=== PATIENT | male | born 1980 ===

== ENCOUNTER → 2018-10-08 10:13 | Outpatient (CLI) | payer OTHER, MEDICAID, SELFPAY ==
[2018-10-08 10:55] LABS: Blood Urea Nitrogen 16 mg/dL (9-20); Carbon Dioxide 30 mmol/L (22-32); Chloride 99 mmol/L (98-107); Estimated Glomerular Filt Rate > 60.0 mL/min (>60); Glucose 119 mg/dL (70-100); HEMOLYSIS < 15 (0-50); Magnesium 1.9 mg/dL (1.6-2.3); Potassium 4.5 mmol/L (3.4-5.1); Sodium 140 mmol/L (137-145)
[2018-10-08 11:34] LABS: HIV 1 and 2 Antibody NEGATIVE (NEGATIVE)
[2018-10-08 12:37] LABS: Urine N gonorrhoeae NOT DETECTED
[2018-10-08 12:43] LABS: Urine Chlamydia NOT DETECTED
[2018-10-09 13:19] LABS: RPR Screen Nonreactive (Nonreactive)
[2018-10-10 09:30] LABS: Hepatitis A Antibody IgM NONREACTIVE (NONREACTIVE); Hepatitis Acute Panel Interp 0.04 (NONREACTIVE); Hepatitis B Core Antibody IgM NONREACTIVE (NONREACTIVE); Hepatitis B Surface Antigen NONREACTIVE (NONREACTIVE); Hepatitis C Antibody NONREACTIVE
== END ==
PROVIDERS: PCP Family Medicine; Visit Provider Family Medicine
DX: R25.3 Fasciculation (principal); Z11.3 Encounter for screening for infections with a predominantly sexual mode of transmission
CPT/HCPCS: 36415; 80048; 80074; 83735; 86592; 86703; 87491; 87591

== ENCOUNTER 2018-11-19 12:15 | Outpatient (RCR) | payer OTHER, MEDICAID, SELFPAY ==
--- NOTE | 2018-09-29 17:35 | PT.OIE ---
Current Diagnoses Dorsalgia, unspecified (09/29/18) Past Medical History (Last Updated 09/20/18 @ 20:58 by Nikki Quesada) Eczema (Chronic ~1982) Knee pain, left (Chronic) Vision disorder (Chronic) Chicken pox (Resolved) Provider Visit Care Team Role Provider Type Katarina Bobo MD Attending Provider Physician Primary Care Provider Specialty: [facility] Address: [address] [place] [address], [facility] Email: [email or web address] Physical Therapy Initial Evaluation PT-OP-A Visit Information Start: 09/29/18 08:06 Freq: Status: Active Protocol: Document 09/29/18 08:07 EA (Rec: 09/29/18 08:15 EA [id number]) Out-Patient Physical Therapy Visit Information Visit Information Visit Type Treatment Note Visit Start Time 07:35 Visit Stop Time 08:05 Total Visit Minutes 30 Visit Number 1 Evaluation Information Evaluation Date 09/29/18 PT-OP-B Current Condition Start: 09/29/18 08:06 Freq: Status: Active Protocol: Document 09/29/18 08:07 EA (Rec: 09/29/18 08:15 EA [id number]) Current Condition History of Current Condition Onset Date 09/29/18 Current Complaints Localized low back pain L > R History of Current Condition Present complaint of low back pain has been chronic for almost 5 years ago with no reports high severity until two months with no known reasons; 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 Patient reports have had previous history when was 20 y /o with same condition and was completely resolve with chiropractor. Pt reports prescribed medication helps a bit but not completely well. No X-ray or other diagnostic imaging performed in the past. Prior Treatments and Tests None Identified Future Testing and Treatments Planned None identified at the moment. Treatment Goals Patient/Caregiver Goals Patient to get rid of the pain so he perform his tasks at work and at home without limitation. Prior Functional Status Baseline Function- ADL's Independent Baseline Function- Mobility Independent Baseline Function- Gait Indep Baseline Function- Work/School No functional limitation at all since last year Current Functional Impairments (Reported) Functional Limitations- ADL's Independent with minimal difficulty with all bending and floor to waist lfting activities Functional Limitations- Mobility/Gait Independent with no limitation Functional Limitations- Work/School Indep with min difficulty with bending and lifting activities PT-OP-C Subjective Start: 09/29/18 08:06 Freq: Status: Active Protocol: Document 09/29/18 08:07 EA (Rec: 09/29/18 08:15 EA [id number]) OP-PT Subjective Patient Comments Patient Comments Patient c/o bending and lifting difficulty due to localized low back pain rated 6/10 with activity and 1/10 when at rest. Patient Reported Progress Improving Patient Questionnaires Oswestry Low Back Index Oswestry Score 12 Oswestry Impairment 1 to 19% Impaired (Score 1-19) OP-PT Pain Assessment Pain Assessment Grid Paper Pain Assessment Grid Completed Yes Location Bilateral Lower Back Pain Location Details SI joint L, Paralumbars, QL Description Aching Tightness Frequency Intermittent Pain Aggravating Factors Bending Lifting Patient Stated Pain Goal 1 with activity Home Pain Medication Use Pain Medications Used Yes Pain Behaviors Pain Behaviors Wincing PT-OP-F Manual Assessment Start: 09/29/18 08:06 Freq: Status: Active Protocol: Document 09/29/18 15:46 EA (Rec: 09/29/18 15:52 EA [id number]) Manual Assessments Soft Tissue Assessment Soft Tissue Mobility Assessment Tightness to both calves, Paralumbars PT-OP-G Mobility & Gait Start: 09/29/18 08:06 Freq: Status: Active Protocol: Document 09/29/18 15:54 EA (Rec: 09/29/18 15:54 EA [id number]) OP Gait Assessment Gait Gait Assistance Required: Independent Assistive Devices Assistive Device None Gait Deviations General Gait Pattern Within Normal Limits PT-OP-J Posture/Palpation/Skin Start: 09/29/18 08:06 Freq: Status: Active Protocol: Document 09/29/18 15:46 EA (Rec: 09/29/18 15:52 EA [id number]) Posture Evaluation Position Standing Evaluation View Lateral Pelvis Posture (L) Iliac Crest Superior Comments Posture Comments LLE is longer by2 cm in long sitting but corrected in supine Palpation Assessment Location One Palpation Location Left SI joint, QL paralumbars Palpation Findings Soft Tissue Tightness Tenderness PT-OP-K Range of Motion Start: 09/29/18 08:06 Freq: Status: Active Protocol: Document 09/29/18 15:46 EA (Rec: 09/29/18 15:52 EA [id number]) Lumbar Spine Range of Motion Lumbar Spine Active Percentage Testing Position Standing Flexion 85 Extension 70 Rotation Left 85 Rotation Right 85 Lateral Flexion Left 70 Lateral Flexion Right 70 ROM Limitations Soft Tissue Tightness Pain PT-OP-L Special Tests Start: 09/29/18 08:06 Freq: Status: Active Protocol: Document 09/29/18 15:46 EA (Rec: 09/29/18 15:52 EA [id number]) Special Tests Lumbar Spine Special Tests Slump Test Results negative Stork Test Test Results Neg Straight Leg Raise Test Results negative Other- 1 Test Results Gaenlen's (+) to left SI joint PT-OP-M Strength Start: 09/29/18 08:06 Freq: Status: Active Protocol: Document 09/29/18 15:43 EA (Rec: 09/29/18 15:46 EA [id number]) Trunk Strength Trunk Manual Muscle Testing Testing Position Supine Flexion 4+ Good+ Extension 4+ Good+ Rotation Left 4+ Good+ Rotation Right 4+ Good+ Lateral Flexion Left 4+ Good+ Lateral Flexion Right 4+ Good+ Hip Strength Hip Manual Muscle Testing Right Reason Not Measured WFL Left Reason Not Measured WFL Knee Strength Knee Manual Muscle Testing Right Reason Not Measured WFL Left Reason Not Measured WFL Ankle/Foot Strength Ankle and Foot Manual Muscle Testing Right Reason Not Measured WFL Left Reason Not Measured WFL PT-OP-Q Treatments Start: 09/29/18 08:06 Freq: Status: Active Protocol: Document 09/29/18 15:43 EA (Rec: 09/29/18 15:46 EA [id number]) Self-Care/Home Management Treatment Education Patient Education Body Mechanics Pain Management Posture PT-OP-T Assessment and Plan Start: 09/29/18 08:06 Freq: Status: Active Protocol: Document 09/29/18 08:15 EA (Rec: 09/29/18 08:16 EA [id number]) Physical Therapy Assessment Rehab Potential Rehabilitation Potential Excellent Evaluation Complexity Number of Personal Factors/Comorbidities 0 Number of Body Systems Impaired 1-2 Clinical Presentation at Evaluation Evolving Impairments Impairments Activity Tolerance Functional Activities Pain Posture ROM Goals Four Impairment No HEP in place Half-Way Goal (LTG) Patient will exhibit excellent understanding to HEP and will comply to recommended frequency LTG Duration 4 wks Three Impairment Impaired Lumbar ROM Deputy District [employer] Director Goal (LTG) Patient will exhibit normal Lumbar ROM to improve functional mobility. LTG Duration 4 wks Two Impairment Impaired sitting tolerance [employer] Director Goal (LTG) Patient will sit > 30 mins with no discomfort or increase in symptoms LTG Duration 4wks One Impairment Low back pain Oswetry impairment score of 12/50 Half-Way Goal (LTG) Oswetry impairment score of 0/ 10 LTG Duration 4 wks Assessment Summary Assessment Pleasant 38 y/o male patient with a referring diagnosis of low back pain presented today with left SI joint dysfunction. Special tests reveals positive to SI joint, left pelvis upslip with left leg longer than right. Tightness to paralumbars with limitation lumbar ROM. No weakness to both LE's noted and no radiculopathy noted. Both calves were tight during palpation. Due to above mentioned deficits, patient is functionally limited. In my professional opinion, patient is good candidate for skilled PT. Patient exhibits good potential for recovery. Physical Therapy Plan Frequency and Duration Frequency of Treatment 2x/Week Duration of Treatment 8 wks Plan of Care Start Date 09/29/18 Plan of Care End Date 11/03/18 Therapeutic Interventions Therapeutic Interventions Home Exercise Program Joint Mobilizations Manual Therapy Patient/Caregiver Education Self-Care/Home Management Soft Tissue Mobilization Taping Therapeutic Activities Therapeutic Exercises Modalities Cold Pack/Ice Massage Electric Stimulation Hot Packs Next Visit Focus/Plan Next Note Type Treatment Note Next Visit Plan Provide HEP
--- NOTE | 2018-09-29 17:35 | PT.OPPOC ---
Current Diagnoses Dorsalgia, unspecified (09/29/18) Provider Visit Care Team Role Provider Type Katarina Bobo MD Attending Provider Physician Primary Care Provider Specialty: [facility] Address: [address] [place] [address], [facility] Email: [email or web address] Plan Of Care PT-OP-T Assessment and Plan Start: 09/29/18 08:06 Freq: Status: Active Protocol: Document 09/29/18 08:15 EA (Rec: 09/29/18 08:16 EA [id number]) Physical Therapy Assessment Rehab Potential Rehabilitation Potential Excellent Evaluation Complexity Number of Personal Factors/Comorbidities 0 Number of Body Systems Impaired 1-2 Clinical Presentation at Evaluation Evolving Impairments Impairments Activity Tolerance Functional Activities Pain Posture ROM Goals Four Impairment No HEP in place Fdc Goal (LTG) Patient will exhibit excellent understanding to HEP and will comply to recommended frequency LTG Duration 4 wks Three Impairment Impaired Lumbar ROM Fdc Goal (LTG) Patient will exhibit normal Lumbar ROM to improve functional mobility. LTG Duration 4 wks Two Impairment Impaired sitting tolerance Fdc Goal (LTG) Patient will sit > 30 mins with no discomfort or increase in symptoms LTG Duration 4wks One Impairment Low back pain Oswetry impairment score of 12/50 Fdc Goal (LTG) Oswetry impairment score of 0/ 10 LTG Duration 4 wks Assessment Summary Assessment Pleasant 38 y/o male patient with a referring diagnosis of low back pain presented today with left SI joint dysfunction. Special tests reveals positive to SI joint, left pelvis upslip with left leg longer than right. Tightness to paralumbars with limitation lumbar ROM. No weakness to both LE's noted and no radiculopathy noted. Both calves were tight during palpation. Due to above mentioned deficits, patient is functionally limited. In my professional opinion, patient is good candidate for skilled PT. Patient exhibits good potential for recovery. Physical Therapy Plan Frequency and Duration Frequency of Treatment 2x/Week Duration of Treatment 8 wks Plan of Care Start Date 09/29/18 Plan of Care End Date 11/03/18 Therapeutic Interventions Therapeutic Interventions Home Exercise Program Joint Mobilizations Manual Therapy Patient/Caregiver Education Self-Care/Home Management Soft Tissue Mobilization Taping Therapeutic Activities Therapeutic Exercises Modalities Cold Pack/Ice Massage Electric Stimulation Hot Packs Next Visit Focus/Plan Next Note Type Treatment Note Next Visit Plan Provide HEP Plan of Care Dates Plan of Care Start Date 09/29/18 Plan of Care End Date 11/03/18 Please Sign and Return: I have reviewed this Plan of Care and certify that the skilled therapy services above are required to meet the patient?s needs. Physician Signature Date Printed Name and Credentials Clinical Instructor Signature Printed Name and Credentials
--- NOTE | 2018-10-15 14:29 | PT.OTN ---
Current Diagnoses Dorsalgia, unspecified (10/15/18) Physical Therapy Treatment Note PT-OP-A Visit Information Start: 09/29/18 08:06 Freq: Status: Active Protocol: Document 10/15/18 12:53 EA (Rec: 10/15/18 13:01 EA [id number]) Out-Patient Physical Therapy Visit Information Visit Information Visit Type Treatment Note Visit Start Time 12:15 Visit Stop Time 13:00 Total Visit Minutes 45 Visit Number 2 PT-OP-B Current Condition Start: 09/29/18 08:06 Freq: Status: Active Protocol: Document 09/29/18 08:07 EA (Rec: 09/29/18 08:15 EA [id number]) Current Condition History of Current Condition Onset Date 09/29/18 Current Complaints Localized low back pain L > R History of Current Condition Present complaint of low back pain has been chronic for almost 5 years ago with no reports high severity until two months with no known reasons; 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 Patient reports have had previous history when was 20 y /o with same condition and was completely resolve with chiropractor. Pt reports prescribed medication helps a bit but not completely well. No X-ray or other diagnostis imaging performed in the past. Prior Treatments and Tests None Identified Future Testing and Treatments Planned None identified at the moment. Treatment Goals Patient/Caregiver Goals Patient to get rid of the pain so he perform his tasks at work and at home without limitation. Prior Functional Status Baseline Function- ADL's Independent Baseline Function- Mobility Independent Baseline Function- Gait Indep Baseline Function- Work/School No functional limitation at all since last year Current Functional Impairments (Reported) Functional Limitations- ADL's Independent with minimal difficulty with all bending and floor to waist lfting activities Functional Limitations- Mobility/Gait Independent with no limitation Functional Limitations- Work/School Indep with min difficulty with bending and lifting activities PT-OP-C Subjective Start: 09/29/18 08:06 Freq: Status: Active Protocol: Document 10/15/18 12:53 EA (Rec: 10/15/18 13:01 EA [id number]) OP-PT Subjective Patient Comments Patient Comments Pt reports low back pain is the same; states woke this morning and pain to low back with radiation to posterior thigh and gluts PT-OP-F Manual Assessment Start: 09/29/18 08:06 Freq: Status: Active Protocol: Document 09/29/18 15:46 EA (Rec: 09/29/18 15:52 EA [id number]) Manual Assessments Soft Tissue Assessment Soft Tissue Mobility Assessment Tightness to both calves, Paralumbars PT-OP-G Mobility & Gait Start: 09/29/18 08:06 Freq: Status: Active Protocol: Document 09/29/18 15:54 EA (Rec: 09/29/18 15:54 EA [id number]) OP Gait Assessment Gait Gait Assistance Required: Independent Assistive Devices Assistive Device None Gait Deviations General Gait Pattern Within Normal Limits PT-OP-J Posture/Palpation/Skin Start: 09/29/18 08:06 Freq: Status: Active Protocol: Document 09/29/18 15:46 EA (Rec: 09/29/18 15:52 EA [id number]) Posture Evaluation Position Standing Evaluation View Lateral Pelvis Posture (L) Iliac Crest Superior Comments Posture Comments LLE is longer by2 cm in long sitting but corrected in supine Palpation Assessment Location One Palpation Location Left SI joint, QL paralumbars Palpation Findings Soft Tissue Tightness Tenderness PT-OP-K Range of Motion Start: 09/29/18 08:06 Freq: Status: Active Protocol: Document 09/29/18 15:46 EA (Rec: 09/29/18 15:52 EA [id number]) Lumbar Spine Range of Motion Lumbar Spine Active Percentage Testing Position Standing Flexion 85 Extension 70 Rotation Left 85 Rotation Right 85 Lateral Flexion Left 70 Lateral Flexion Right 70 ROM Limitations Soft Tissue Tightness Pain PT-OP-L Special Tests Start: 09/29/18 08:06 Freq: Status: Active Protocol: Document 09/29/18 15:46 EA (Rec: 09/29/18 15:52 EA [id number]) Special Tests Lumbar Spine Special Tests Slump Test Results negative Stork Test Test Results Neg Straight Leg Raise Test Results negative Other- 1 Test Results Gaenlen's (+) to left SI joint PT-OP-M Strength Start: 09/29/18 08:06 Freq: Status: Active Protocol: Document 09/29/18 15:43 EA (Rec: 09/29/18 15:46 EA [id number]) Trunk Strength Trunk Manual Muscle Testing Testing Position Supine Flexion 4+ Good+ Extension 4+ Good+ Rotation Left 4+ Good+ Rotation Right 4+ Good+ Lateral Flexion Left 4+ Good+ Lateral Flexion Right 4+ Good+ Hip Strength Hip Manual Muscle Testing Right Reason Not Measured WFL Left Reason Not Measured WFL Knee Strength Knee Manual Muscle Testing Right Reason Not Measured WFL Left Reason Not Measured WFL Ankle/Foot Strength Ankle and Foot Manual Muscle Testing Right Reason Not Measured WFL Left Reason Not Measured WFL PT-OP-Q Treatments Start: 09/29/18 08:06 Freq: Status: Active Protocol: Document 10/15/18 12:53 EA (Rec: 10/15/18 13:01 EA [id number]) Cardio Equipment Recumbent Bicycle Duration (Minutes) 5 Resistance 4 Other warm up Therapeutic Exercises Supine Exercises 2 Supine Exercise Name Trunk rotation stretch Side bilateral Reps/Minutes x 30SH x 2 reps 1 Supine Exercise Name Pirformis stretch Side bilateral Reps/Minutes x 30SH x 2 Prone Exercises 1 Prone Exercise Name Quads stertch Reps/Minutes x 30 sh x2 reps Sidelying Exercises 2 Sidelying Exercise Name ITB stretch Reps/Minutes x 30SH x 2 reps 1 Sidelying Exercise Name Clamshell Reps/Minutes x 15 reps Manual Therapy Treatment Soft Tissue Mobilization 1 Body Location Left paralumbars, upper gluteals, QL Mobilization Type Rolling Sustained Pressure Intensity/Depth Moderate Body Position Prone Joint Mobilizations 1 Joint L SI jnt Direction Caudal Grade III Body Position SL PT-OP-R Modalities Start: 09/29/18 08:06 Freq: Status: Active Protocol: Document 10/15/18 12:53 EA (Rec: 10/15/18 13:01 EA [id number]) Electric Stimulation Electric Stimulation Interferential Current (IFC) Body Location Left paralumbars, QL Duration (Minutes) 15 Intensity 10 Combined With Heat/Cold Hot Pack PT-OP-T Assessment and Plan Start: 09/29/18 08:06 Freq: Status: Active Protocol: Document 10/15/18 12:53 EA (Rec: 10/15/18 13:01 EA [id number]) Physical Therapy Assessment Assessment Summary Assessment Tolerated treatment well. Symptoms less after treatment. Physical Therapy Plan Next Visit Focus/Plan Next Note Type Treatment Note Next Visit Plan Cont. with current program
--- NOTE | 2018-11-03 16:46 | PT.OTN ---
Current Diagnoses Dorsalgia, unspecified (11/03/18) Physical Therapy Treatment Note PT-OP-A Visit Information Start: 09/29/18 08:06 Freq: Status: Active Protocol: Document 11/03/18 15:00 EA (Rec: 11/03/18 15:01 EA [id number]) Out-Patient Physical Therapy Visit Information Visit Information Visit Type Treatment Note Visit Start Time 14:30 Visit Stop Time 15:15 Total Visit Minutes 45 Visit Number 3 PT-OP-B Current Condition Start: 09/29/18 08:06 Freq: Status: Active Protocol: Document 09/29/18 08:07 EA (Rec: 09/29/18 08:15 EA [id number]) Current Condition History of Current Condition Onset Date 09/29/18 Current Complaints Localized low back pain L > R History of Current Condition Present complaint of low back pain has been chronic for almost 5 years ago with no reports high severity until two months with no known reasons; 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 Patient reports have had previous history when was 20 y /o with same condition and was completely resolve with chiropractor. Pt reports prescribed medication helps a bit but not completely well. No X-ray or other diagnostis imaging performed in the past. Prior Treatments and Tests None Identified Future Testing and Treatments Planned None identified at the moment. Treatment Goals Patient/Caregiver Goals Patient to get rid of the pain so he perform his tasks at work and at home without limitation. Prior Functional Status Baseline Function- ADL's Independent Baseline Function- Mobility Independent Baseline Function- Gait Indep Baseline Function- Work/School No functional limitation at all since last year Current Functional Impairments (Reported) Functional Limitations- ADL's Independent with minimal difficulty with all bending and floor to waist lfting activities Functional Limitations- Mobility/Gait Independent with no limitation Functional Limitations- Work/School Indep with min difficulty with bending and lifting activities PT-OP-C Subjective Start: 09/29/18 08:06 Freq: Status: Active Protocol: Document 11/03/18 14:34 EA (Rec: 11/03/18 15:00 EA [id number]) OP-PT Subjective Patient Comments Patient Comments Pt reports consistent with HEP and low back is feeling much better. PT-OP-F Manual Assessment Start: 09/29/18 08:06 Freq: Status: Active Protocol: Document 09/29/18 15:46 EA (Rec: 09/29/18 15:52 EA [id number]) Manual Assessments Soft Tissue Assessment Soft Tissue Mobility Assessment Tightness to both calves, Paralumbars PT-OP-G Mobility & Gait Start: 09/29/18 08:06 Freq: Status: Active Protocol: Document 09/29/18 15:54 EA (Rec: 09/29/18 15:54 EA [id number]) OP Gait Assessment Gait Gait Assistance Required: Independent Assistive Devices Assistive Device None Gait Deviations General Gait Pattern Within Normal Limits PT-OP-J Posture/Palpation/Skin Start: 09/29/18 08:06 Freq: Status: Active Protocol: Document 09/29/18 15:46 EA (Rec: 09/29/18 15:52 EA [id number]) Posture Evaluation Position Standing Evaluation View Lateral Pelvis Posture (L) Iliac Crest Superior Comments Posture Comments LLE is longer by2 cm in long sitting but corrected in supine Palpation Assessment Location One Palpation Location Left SI joint, QL paralumbars Palpation Findings Soft Tissue Tightness Tenderness PT-OP-K Range of Motion Start: 09/29/18 08:06 Freq: Status: Active Protocol: Document 09/29/18 15:46 EA (Rec: 09/29/18 15:52 EA [id number]) Lumbar Spine Range of Motion Lumbar Spine Active Percentage Testing Position Standing Flexion 85 Extension 70 Rotation Left 85 Rotation Right 85 Lateral Flexion Left 70 Lateral Flexion Right 70 ROM Limitations Soft Tissue Tightness Pain PT-OP-L Special Tests Start: 09/29/18 08:06 Freq: Status: Active Protocol: Document 09/29/18 15:46 EA (Rec: 09/29/18 15:52 EA [id number]) Special Tests Lumbar Spine Special Tests Slump Test Results negative Stork Test Test Results Neg Straight Leg Raise Test Results negative Other- 1 Test Results Gaenlen's (+) to left SI joint PT-OP-M Strength Start: 09/29/18 08:06 Freq: Status: Active Protocol: Document 09/29/18 15:43 EA (Rec: 09/29/18 15:46 EA [id number]) Trunk Strength Trunk Manual Muscle Testing Testing Position Supine Flexion 4+ Good+ Extension 4+ Good+ Rotation Left 4+ Good+ Rotation Right 4+ Good+ Lateral Flexion Left 4+ Good+ Lateral Flexion Right 4+ Good+ Hip Strength Hip Manual Muscle Testing Right Reason Not Measured WFL Left Reason Not Measured WFL Knee Strength Knee Manual Muscle Testing Right Reason Not Measured WFL Left Reason Not Measured WFL Ankle/Foot Strength Ankle and Foot Manual Muscle Testing Right Reason Not Measured WFL Left Reason Not Measured WFL PT-OP-Q Treatments Start: 09/29/18 08:06 Freq: Status: Active Protocol: Document 11/03/18 14:34 EA (Rec: 11/03/18 15:00 EA [id number]) Cardio Equipment Recumbent Stepper (Sci-Fit) Duration (Minutes) 7 Resistance 2 Seat Position 13 Therapeutic Exercises Supine Exercises 2 Supine Exercise Name Trunk rotation stretch Side bilateral Reps/Minutes x 30SH x 2 reps 1 Supine Exercise Name Pirformis stretch Side bilateral Reps/Minutes x 30SH x 2 Prone Exercises 1 Prone Exercise Name Quads stertch Reps/Minutes x 30 sh x2 reps Sidelying Exercises 2 Sidelying Exercise Name ITB stretch Reps/Minutes x 30SH x 2 reps 1 Sidelying Exercise Name Clamshell Reps/Minutes x 15 reps Manual Therapy Treatment Soft Tissue Mobilization 1 Body Location Left paralumbars, upper gluteals, QL Mobilization Type Rolling Sustained Pressure Intensity/Depth Moderate Body Position Prone Joint Mobilizations 1 Joint L SI jnt Direction Caudal Grade III Body Position SL PT-OP-R Modalities Start: 09/29/18 08:06 Freq: Status: Active Protocol: Document 11/03/18 14:34 EA (Rec: 11/03/18 15:00 EA [id number]) Electric Stimulation Electric Stimulation Interferential Current (IFC) Body Location Left paralumbars, QL Duration (Minutes) 15 Intensity 10 Combined With Heat/Cold Hot Pack PT-OP-T Assessment and Plan Start: 09/29/18 08:06 Freq: Status: Active Protocol: Document 11/03/18 14:34 EA (Rec: 11/03/18 15:00 EA [id number]) Physical Therapy Assessment Assessment Summary Assessment Pt tolerated treatment with mild discomfort during therex; overall patient is progressing well. Physical Therapy Plan Next Visit Focus/Plan Next Note Type Treatment Note Next Visit Plan Cont. with current program
--- NOTE | 2018-11-05 13:12 | PT.OTN ---
Current Diagnoses Dorsalgia, unspecified (11/05/18) Physical Therapy Treatment Note PT-OP-A Visit Information Start: 09/29/18 08:06 Freq: Status: Active Protocol: Document 11/05/18 12:43 EA (Rec: 11/05/18 12:50 EA [id number]) Out-Patient Physical Therapy Visit Information Visit Information Visit Type Treatment Note Visit Start Time 12:15 Visit Stop Time 13:00 Total Visit Minutes 38 Visit Number 3 PT-OP-B Current Condition Start: 09/29/18 08:06 Freq: Status: Active Protocol: Document 09/29/18 08:07 EA (Rec: 09/29/18 08:15 EA [id number]) Current Condition History of Current Condition Onset Date 09/29/18 Current Complaints Localized low back pain L > R History of Current Condition Present complaint of low back pain has been chronic for almost 5 years ago with no reports high severity until two months with no known reasons; 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 Patient reports have had previous history when was 20 y /o with same condition and was completely resolve with chiropractor. Pt reports prescribed medication helps a bit but not completely well. No X-ray or other diagnostis imaging performed in the past. Prior Treatments and Tests None Identified Future Testing and Treatments Planned None identified at the moment. Treatment Goals Patient/Caregiver Goals Patient to get rid of the pain so he perform his tasks at work and at home without limitation. Prior Functional Status Baseline Function- ADL's Independent Baseline Function- Mobility Independent Baseline Function- Gait Indep Baseline Function- Work/School No functional limitation at all since last year Current Functional Impairments (Reported) Functional Limitations- ADL's Independent with minimal difficulty with all bending and floor to waist lfting activities Functional Limitations- Mobility/Gait Independent with no limitation Functional Limitations- Work/School Indep with min difficulty with bending and lifting activities PT-OP-C Subjective Start: 09/29/18 08:06 Freq: Status: Active Protocol: Document 11/05/18 12:43 EA (Rec: 11/05/18 12:50 EA [id number]) OP-PT Subjective Patient Comments Patient Comments Pt reports low back pain is progressing well. Pt reports he had jogged coming to [place] and feels wramed -up Patient Reported Progress Improving PT-OP-F Manual Assessment Start: 09/29/18 08:06 Freq: Status: Active Protocol: Document 09/29/18 15:46 EA (Rec: 09/29/18 15:52 EA [id number]) Manual Assessments Soft Tissue Assessment Soft Tissue Mobility Assessment Tightness to both calves, Paralumbars PT-OP-G Mobility & Gait Start: 09/29/18 08:06 Freq: Status: Active Protocol: Document 09/29/18 15:54 EA (Rec: 09/29/18 15:54 EA [id number]) OP Gait Assessment Gait Gait Assistance Required: Independent Assistive Devices Assistive Device None Gait Deviations General Gait Pattern Within Normal Limits PT-OP-J Posture/Palpation/Skin Start: 09/29/18 08:06 Freq: Status: Active Protocol: Document 09/29/18 15:46 EA (Rec: 09/29/18 15:52 EA [id number]) Posture Evaluation Position Standing Evaluation View Lateral Pelvis Posture (L) Iliac Crest Superior Comments Posture Comments LLE is longer by2 cm in long sitting but corrected in supine Palpation Assessment Location One Palpation Location Left SI joint, QL paralumbars Palpation Findings Soft Tissue Tightness Tenderness PT-OP-K Range of Motion Start: 09/29/18 08:06 Freq: Status: Active Protocol: Document 09/29/18 15:46 EA (Rec: 09/29/18 15:52 EA [id number]) Lumbar Spine Range of Motion Lumbar Spine Active Percentage Testing Position Standing Flexion 85 Extension 70 Rotation Left 85 Rotation Right 85 Lateral Flexion Left 70 Lateral Flexion Right 70 ROM Limitations Soft Tissue Tightness Pain PT-OP-L Special Tests Start: 09/29/18 08:06 Freq: Status: Active Protocol: Document 09/29/18 15:46 EA (Rec: 09/29/18 15:52 EA [id number]) Special Tests Lumbar Spine Special Tests Slump Test Results negative Stork Test Test Results Neg Straight Leg Raise Test Results negative Other- 1 Test Results Gaenlen's (+) to left SI joint PT-OP-M Strength Start: 09/29/18 08:06 Freq: Status: Active Protocol: Document 09/29/18 15:43 EA (Rec: 09/29/18 15:46 EA [id number]) Trunk Strength Trunk Manual Muscle Testing Testing Position Supine Flexion 4+ Good+ Extension 4+ Good+ Rotation Left 4+ Good+ Rotation Right 4+ Good+ Lateral Flexion Left 4+ Good+ Lateral Flexion Right 4+ Good+ Hip Strength Hip Manual Muscle Testing Right Reason Not Measured WFL Left Reason Not Measured WFL Knee Strength Knee Manual Muscle Testing Right Reason Not Measured WFL Left Reason Not Measured WFL Ankle/Foot Strength Ankle and Foot Manual Muscle Testing Right Reason Not Measured WFL Left Reason Not Measured WFL PT-OP-Q Treatments Start: 09/29/18 08:06 Freq: Status: Active Protocol: Document 11/05/18 12:43 EA (Rec: 11/05/18 12:50 EA [id number]) Therapeutic Exercises Supine Exercises 2 Supine Exercise Name Trunk rotation stretch Side bilateral Reps/Minutes x 30SH x 2 reps 1 Supine Exercise Name Pirformis stretch Side bilateral Reps/Minutes x 30SH x 2 Prone Exercises 1 Prone Exercise Name Quads stertch Reps/Minutes x 30 sh x2 reps Sidelying Exercises 2 Sidelying Exercise Name ITB stretch Reps/Minutes x 30SH x 2 reps 1 Sidelying Exercise Name Clamshell Resistance Lv1 Reps/Minutes x 15 reps Manual Therapy Treatment Soft Tissue Mobilization 1 Body Location Left paralumbars, upper gluteals, QL Mobilization Type Rolling Sustained Pressure Intensity/Depth Moderate Body Position Prone PT-OP-R Modalities Start: 09/29/18 08:06 Freq: Status: Active Protocol: Document 11/05/18 12:43 EA (Rec: 11/05/18 12:50 EA [id number]) Electric Stimulation Electric Stimulation Interferential Current (IFC) Body Location Left paralumbars, QL Duration (Minutes) 15 Intensity 10 Combined With Heat/Cold Hot Pack PT-OP-T Assessment and Plan Start: 09/29/18 08:06 Freq: Status: Active Protocol: Document 11/05/18 12:43 EA (Rec: 11/05/18 12:50 EA [id number]) Physical Therapy Assessment Assessment Summary Assessment Improved symptoms and no discomfort during therex. Patient is progressing well. Physical Therapy Plan Next Visit Focus/Plan Next Note Type Treatment Note Next Visit Plan Advance as tolerated.
--- NOTE | 2018-11-10 16:46 | PT.OTN ---
Current Diagnoses Dorsalgia, unspecified (11/10/18) Physical Therapy Treatment Note PT-OP-A Visit Information Start: 09/29/18 08:06 Freq: Status: Active Protocol: Document 11/10/18 15:04 EA (Rec: 11/10/18 15:10 EA [id number]) Out-Patient Physical Therapy Visit Information Visit Information Visit Start Time 14:30 Visit Stop Time 15:20 Total Visit Minutes 50 Visit Number 4 PT-OP-B Current Condition Start: 09/29/18 08:06 Freq: Status: Active Protocol: Document 09/29/18 08:07 EA (Rec: 09/29/18 08:15 EA [id number]) Current Condition History of Current Condition Onset Date 09/29/18 Current Complaints Localized low back pain L > R History of Current Condition Present complaint of low back pain has been chronic for almost 5 years ago with no reports high severity until two months with no known reasons; 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 Patient reports have had previous history when was 20 y /o with same condition and was completely resolve with chiropractor. Pt reports prescribed medication helps a bit but not completely well. No X-ray or other diagnostis imaging performed in the past. Prior Treatments and Tests None Identified Future Testing and Treatments Planned None identified at the moment. Treatment Goals Patient/Caregiver Goals Patient to get rid of the pain so he perform his tasks at work and at home without limitation. Prior Functional Status Baseline Function- ADL's Independent Baseline Function- Mobility Independent Baseline Function- Gait Indep Baseline Function- Work/School No functional limitation at all since last year Current Functional Impairments (Reported) Functional Limitations- ADL's Independent with minimal difficulty with all bending and floor to waist lfting activities Functional Limitations- Mobility/Gait Independent with no limitation Functional Limitations- Work/School Indep with min difficulty with bending and lifting activities PT-OP-C Subjective Start: 09/29/18 08:06 Freq: Status: Active Protocol: Document 11/10/18 15:04 EA (Rec: 11/10/18 15:10 EA [id number]) OP-PT Subjective Patient Comments Patient Comments Pt reports couple episodes of low back pain; states he has been busy two days ago doing work at home. PT-OP-F Manual Assessment Start: 09/29/18 08:06 Freq: Status: Active Protocol: Document 09/29/18 15:46 EA (Rec: 09/29/18 15:52 EA [id number]) Manual Assessments Soft Tissue Assessment Soft Tissue Mobility Assessment Tightness to both calves, Paralumbars PT-OP-G Mobility & Gait Start: 09/29/18 08:06 Freq: Status: Active Protocol: Document 09/29/18 15:54 EA (Rec: 09/29/18 15:54 EA [id number]) OP Gait Assessment Gait Gait Assistance Required: Independent Assistive Devices Assistive Device None Gait Deviations General Gait Pattern Within Normal Limits PT-OP-J Posture/Palpation/Skin Start: 09/29/18 08:06 Freq: Status: Active Protocol: Document 09/29/18 15:46 EA (Rec: 09/29/18 15:52 EA [id number]) Posture Evaluation Position Standing Evaluation View Lateral Pelvis Posture (L) Iliac Crest Superior Comments Posture Comments LLE is longer by2 cm in long sitting but corrected in supine Palpation Assessment Location One Palpation Location Left SI joint, QL paralumbars Palpation Findings Soft Tissue Tightness Tenderness PT-OP-K Range of Motion Start: 09/29/18 08:06 Freq: Status: Active Protocol: Document 09/29/18 15:46 EA (Rec: 09/29/18 15:52 EA [id number]) Lumbar Spine Range of Motion Lumbar Spine Active Percentage Testing Position Standing Flexion 85 Extension 70 Rotation Left 85 Rotation Right 85 Lateral Flexion Left 70 Lateral Flexion Right 70 ROM Limitations Soft Tissue Tightness Pain PT-OP-L Special Tests Start: 09/29/18 08:06 Freq: Status: Active Protocol: Document 09/29/18 15:46 EA (Rec: 09/29/18 15:52 EA [id number]) Special Tests Lumbar Spine Special Tests Slump Test Results negative Stork Test Test Results Neg Straight Leg Raise Test Results negative Other- 1 Test Results Gaenlen's (+) to left SI joint PT-OP-M Strength Start: 09/29/18 08:06 Freq: Status: Active Protocol: Document 09/29/18 15:43 EA (Rec: 09/29/18 15:46 EA [id number]) Trunk Strength Trunk Manual Muscle Testing Testing Position Supine Flexion 4+ Good+ Extension 4+ Good+ Rotation Left 4+ Good+ Rotation Right 4+ Good+ Lateral Flexion Left 4+ Good+ Lateral Flexion Right 4+ Good+ Hip Strength Hip Manual Muscle Testing Right Reason Not Measured WFL Left Reason Not Measured WFL Knee Strength Knee Manual Muscle Testing Right Reason Not Measured WFL Left Reason Not Measured WFL Ankle/Foot Strength Ankle and Foot Manual Muscle Testing Right Reason Not Measured WFL Left Reason Not Measured WFL PT-OP-Q Treatments Start: 09/29/18 08:06 Freq: Status: Active Protocol: Document 11/10/18 15:04 EA (Rec: 11/10/18 15:10 EA [id number]) Cardio Equipment Recumbent Bicycle Duration (Minutes) 5 Resistance 4 Other warm up Therapeutic Exercises Supine Exercises 4 Supine Exercise Name PPT with leg marching Reps/Minutes X 15 reps x 2 sets 3 Supine Exercise Name PPT with SLR Reps/Minutes x 10 repe x 2 sets each leg 2 Supine Exercise Name Trunk rotation stretch Side bilateral Reps/Minutes x 30SH x 2 reps 1 Supine Exercise Name Pirformis stretch Side bilateral Reps/Minutes x 30SH x 2 Prone Exercises 1 Prone Exercise Name Quads stertch Reps/Minutes x 30 sh x2 reps Sidelying Exercises 2 Sidelying Exercise Name ITB stretch Reps/Minutes x 30SH x 2 reps 1 Sidelying Exercise Name Clamshell Resistance Lv2 Reps/Minutes x 15 reps Manual Therapy Treatment Soft Tissue Mobilization 1 Body Location Left paralumbars, upper gluteals, QL Mobilization Type Rolling Sustained Pressure Intensity/Depth Moderate Body Position Prone PT-OP-R Modalities Start: 09/29/18 08:06 Freq: Status: Active Protocol: Document 11/10/18 15:04 EA (Rec: 11/10/18 15:10 EA [id number]) Electric Stimulation Electric Stimulation Interferential Current (IFC) Body Location Left paralumbars, QL Duration (Minutes) 15 Intensity 10 Combined With Heat/Cold Hot Pack PT-OP-T Assessment and Plan Start: 09/29/18 08:06 Freq: Status: Active Protocol: Document 11/10/18 15:04 EA (Rec: 11/10/18 15:10 EA [id number]) Physical Therapy Assessment Assessment Summary Assessment Tolerated therex well with no discomfort noted. Patient is progressing well. Physical Therapy Plan Next Visit Focus/Plan Next Note Type Treatment Note Next Visit Plan To perform standing core exercises.
--- NOTE | 2018-11-12 15:14 | PT.OTN ---
Current Diagnoses Dorsalgia, unspecified (11/12/18) Physical Therapy Treatment Note PT-OP-A Visit Information Start: 09/29/18 08:06 Freq: Status: Active Protocol: Document 11/12/18 12:51 EA (Rec: 11/12/18 12:57 EA [id number]) Out-Patient Physical Therapy Visit Information Visit Information Visit Type Treatment Note Visit Start Time 12:15 Visit Stop Time 13:00 Total Visit Minutes 38 Visit Number 6 PT-OP-B Current Condition Start: 09/29/18 08:06 Freq: Status: Active Protocol: Document 09/29/18 08:07 EA (Rec: 09/29/18 08:15 EA [id number]) Current Condition History of Current Condition Onset Date 09/29/18 Current Complaints Localized low back pain L > R History of Current Condition Present complaint of low back pain has been chronic for almost 5 years ago with no reports high severity until two months with no known reasons; 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 Patient reports have had previous history when was 20 y /o with same condition and was completely resolve with chiropractor. Pt reports prescribed medication helps a bit but not completely well. No X-ray or other diagnostis imaging performed in the past. Prior Treatments and Tests None Identified Future Testing and Treatments Planned None identified at the moment. Treatment Goals Patient/Caregiver Goals Patient to get rid of the pain so he perform his tasks at work and at home without limitation. Prior Functional Status Baseline Function- ADL's Independent Baseline Function- Mobility Independent Baseline Function- Gait Indep Baseline Function- Work/School No functional limitation at all since last year Current Functional Impairments (Reported) Functional Limitations- ADL's Independent with minimal difficulty with all bending and floor to waist lfting activities Functional Limitations- Mobility/Gait Independent with no limitation Functional Limitations- Work/School Indep with min difficulty with bending and lifting activities PT-OP-C Subjective Start: 09/29/18 08:06 Freq: Status: Active Protocol: Document 11/12/18 12:51 EA (Rec: 11/12/18 12:57 EA [id number]) OP-PT Subjective Patient Comments Patient Comments Pt reports I feel my low back is feeling little better: states thinking going back to running again. PT-OP-F Manual Assessment Start: 09/29/18 08:06 Freq: Status: Active Protocol: Document 12/03/18 15:46 EA (Rec: 09/29/18 15:52 EA [id number]) Manual Assessments Soft Tissue Assessment Soft Tissue Mobility Assessment Tightness to both calves, Paralumbars PT-OP-G Mobility & Gait Start: 09/29/18 08:06 Freq: Status: Active Protocol: Document 09/29/18 15:54 EA (Rec: 09/29/18 15:54 EA [id number]) OP Gait Assessment Gait Gait Assistance Required: Independent Assistive Devices Assistive Device None Gait Deviations General Gait Pattern Within Normal Limits PT-OP-J Posture/Palpation/Skin Start: 09/29/18 08:06 Freq: Status: Active Protocol: Document 09/29/18 15:46 EA (Rec: 09/29/18 15:52 EA [id number]) Posture Evaluation Position Standing Evaluation View Lateral Pelvis Posture (L) Iliac Crest Superior Comments Posture Comments LLE is longer by2 cm in long sitting but corrected in supine Palpation Assessment Location One Palpation Location Left SI joint, QL paralumbars Palpation Findings Soft Tissue Tightness Tenderness PT-OP-K Range of Motion Start: 09/29/18 08:06 Freq: Status: Active Protocol: Document 09/29/18 15:46 EA (Rec: 09/29/18 15:52 EA [id number]) Lumbar Spine Range of Motion Lumbar Spine Active Percentage Testing Position Standing Flexion 85 Extension 70 Rotation Left 85 Rotation Right 85 Lateral Flexion Left 70 Lateral Flexion Right 70 ROM Limitations Soft Tissue Tightness Pain PT-OP-L Special Tests Start: 09/29/18 08:06 Freq: Status: Active Protocol: Document 09/29/18 15:46 EA (Rec: 09/29/18 15:52 EA [id number]) Special Tests Lumbar Spine Special Tests Slump Test Results negative Stork Test Test Results Neg Straight Leg Raise Test Results negative Other- 1 Test Results Gaenlen's (+) to left SI joint PT-OP-M Strength Start: 09/29/18 08:06 Freq: Status: Active Protocol: Document 09/29/18 15:43 EA (Rec: 09/29/18 15:46 EA [id number]) Trunk Strength Trunk Manual Muscle Testing Testing Position Supine Flexion 4+ Good+ Extension 4+ Good+ Rotation Left 4+ Good+ Rotation Right 4+ Good+ Lateral Flexion Left 4+ Good+ Lateral Flexion Right 4+ Good+ Hip Strength Hip Manual Muscle Testing Right Reason Not Measured WFL Left Reason Not Measured WFL Knee Strength Knee Manual Muscle Testing Right Reason Not Measured WFL Left Reason Not Measured WFL Ankle/Foot Strength Ankle and Foot Manual Muscle Testing Right Reason Not Measured WFL Left Reason Not Measured WFL PT-OP-Q Treatments Start: 09/29/18 08:06 Freq: Status: Active Protocol: Document 11/12/18 12:51 EA (Rec: 11/12/18 12:57 EA [id number]) Cardio Equipment Recumbent Bicycle Duration (Minutes) 5 Resistance 4 Other warm up Gym Equipment Cable Column (Body Solid) Other- 1 Details squat low row Resistance 30lbs Reps/Time x 12 reps Therapeutic Exercises Supine Exercises 4 Supine Exercise Name PPT with leg marching Reps/Minutes X 15 reps x 2 sets 3 Supine Exercise Name PPT with SLR Reps/Minutes x 10 repe x 2 sets each leg 2 Supine Exercise Name Trunk rotation stretch Side bilateral Reps/Minutes x 30SH x 2 reps 1 Supine Exercise Name Pirformis stretch Side bilateral Reps/Minutes x 30SH x 2 Prone Exercises 2 Prone Exercise Name Hip extnsion bilaterally Reps/Minutes x 10 reps x 2 Comments edge of table 1 Prone Exercise Name Quads stertch Reps/Minutes x 30 sh x2 reps Sidelying Exercises 2 Sidelying Exercise Name ITB stretch Reps/Minutes x 30SH x 2 reps Other Exercises 2 Other Exercise Name Standing cable trunlk rotation Reps/Minutes x 10reps each side Comments slight knee bent in lunge position 1 Other Exercise Name Wall squat shoulder front raises Resistance 5lbs Reps/Minutes x 10 reps x5 SH Manual Therapy Treatment Soft Tissue Mobilization 1 Body Location Left paralumbars, upper gluteals, QL Mobilization Type Rolling Sustained Pressure Intensity/Depth Moderate Body Position Prone PT-OP-R Modalities Start: 09/29/18 08:06 Freq: Status: Active Protocol: Document 11/12/18 12:51 EA (Rec: 11/12/18 12:57 EA [id number]) Electric Stimulation Electric Stimulation Interferential Current (IFC) Body Location Left paralumbars, QL Duration (Minutes) 15 Intensity 12 Combined With Heat/Cold Hot Pack PT-OP-T Assessment and Plan Start: 09/29/18 08:06 Freq: Status: Active Protocol: Document 11/12/18 12:51 KAREL (Rec: 11/12/18 12:57 EA [id number]) Physical Therapy Assessment Assessment Summary Assessment Patient tolerated standing core exercises with no discomfort noted; requires cues to form; otherwise progressing very well. Physical Therapy Plan Next Visit Focus/Plan Next Note Type Treatment Note Next Visit Plan continue to perform standing core exercises.
--- NOTE | 2018-11-19 12:58 | PT.OTN ---
Current Diagnoses Dorsalgia, unspecified (11/19/18) Physical Therapy Treatment Note PT-OP-A Visit Information Start: 09/29/18 08:06 Freq: Status: Active Protocol: Document 11/19/18 12:41 EA (Rec: 11/19/18 12:50 EA [id number]) Out-Patient Physical Therapy Visit Information Visit Information Visit Type Treatment Note Visit Note Discharge to this date Visit Start Time 12:15 Visit Stop Time 13:00 Total Visit Minutes 38 Visit Number 6 PT-OP-B Current Condition Start: 09/29/18 08:06 Freq: Status: Active Protocol: Document 09/29/18 08:07 EA (Rec: 09/29/18 08:15 EA [id number]) Current Condition History of Current Condition Onset Date 09/29/18 Current Complaints Localized low back pain L > R History of Current Condition Present complaint of low back pain has been chronic for almost 5 years ago with no reports high severity until two months with no known reasons; 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 Patient reports have had previous history when was 20 y /o with same condition and was completely resolve with chiropractor. Pt reports prescribed medication helps a bit but not completely well. No X-ray or other diagnostis imaging performed in the past. Prior Treatments and Tests None Identified Future Testing and Treatments Planned None identified at the moment. Treatment Goals Patient/Caregiver Goals Patient to get rid of the pain so he perform his tasks at work and at home without limitation. Prior Functional Status Baseline Function- ADL's Independent Baseline Function- Mobility Independent Baseline Function- Gait Indep Baseline Function- Work/School No functional limitation at all since last year Current Functional Impairments (Reported) Functional Limitations- ADL's Independent with minimal difficulty with all bending and floor to waist lfting activities Functional Limitations- Mobility/Gait Independent with no limitation Functional Limitations- Work/School Indep with min difficulty with bending and lifting activities PT-OP-C Subjective Start: 09/29/18 08:06 Freq: Status: Active Protocol: Document 11/19/18 12:41 EA (Rec: 11/19/18 12:50 EA [id number]) OP-PT Subjective Patient Comments Patient Comments Pt states My low back is definitely got lot better; states he is okay to discharge a now to home exercises program. Patient Reported Progress Improving PT-OP-F Manual Assessment Start: 09/29/18 08:06 Freq: Status: Active Protocol: Document 09/29/18 15:46 EA (Rec: 09/29/18 15:52 EA [id number]) Manual Assessments Soft Tissue Assessment Soft Tissue Mobility Assessment Tightness to both calves, Paralumbars PT-OP-G Mobility & Gait Start: 09/29/18 08:06 Freq: Status: Active Protocol: Document 09/29/18 15:54 EA (Rec: 09/29/18 15:54 EA [id number]) OP Gait Assessment Gait Gait Assistance Required: Independent Assistive Devices Assistive Device None Gait Deviations General Gait Pattern Within Normal Limits PT-OP-J Posture/Palpation/Skin Start: 09/29/18 08:06 Freq: Status: Active Protocol: Document 11/19/18 12:50 EA (Rec: 11/19/18 12:51 EA [id number]) Palpation Assessment Location One Palpation Findings Tenderness Palpation Details no noted signs of tenderness at this time. PT-OP-K Range of Motion Start: 09/29/18 08:06 Freq: Status: Active Protocol: Document 11/19/18 12:50 EA (Rec: 11/19/18 12:51 EA [id number]) Lumbar Spine Range of Motion Lumbar Spine Active Percentage Testing Position Standing Flexion 100 Extension 100 Rotation Left 100 Rotation Right 100 Lateral Flexion Left 90 Lateral Flexion Right 90 Comments Improved ROM noted at this time. PT-OP-L Special Tests Start: 09/29/18 08:06 Freq: Status: Active Protocol: Document 09/29/18 15:46 EA (Rec: 09/29/18 15:52 EA [id number]) Special Tests Lumbar Spine Special Tests Slump Test Results negative Stork Test Test Results Neg Straight Leg Raise Test Results negative Other- 1 Test Results Gaenlen's (+) to left SI joint PT-OP-M Strength Start: 09/29/18 08:06 Freq: Status: Active Protocol: Document 09/29/18 15:43 EA (Rec: 09/29/18 15:46 EA [id number]) Trunk Strength Trunk Manual Muscle Testing Testing Position Supine Flexion 4+ Good+ Extension 4+ Good+ Rotation Left 4+ Good+ Rotation Right 4+ Good+ Lateral Flexion Left 4+ Good+ Lateral Flexion Right 4+ Good+ Hip Strength Hip Manual Muscle Testing Right Reason Not Measured WFL Left Reason Not Measured WFL Knee Strength Knee Manual Muscle Testing Right Reason Not Measured WFL Left Reason Not Measured WFL Ankle/Foot Strength Ankle and Foot Manual Muscle Testing Right Reason Not Measured WFL Left Reason Not Measured WFL PT-OP-Q Treatments Start: 09/29/18 08:06 Freq: Status: Active Protocol: Document 11/19/18 12:41 EA (Rec: 11/19/18 12:50 EA [id number]) Cardio Equipment Recumbent Bicycle Duration (Minutes) 5 Resistance 4 Other warm up Gym Equipment Cable Column (Body Solid) Other- 1 Details squat low row Resistance 30lbs Reps/Time x 12 reps Therapeutic Exercises Supine Exercises 4 Supine Exercise Name PPT with leg marching Reps/Minutes X 15 reps x 2 sets Comments HEP comp 3 Supine Exercise Name PPT with SLR Reps/Minutes x 10 repe x 2 sets each leg Comments HEP comp 2 Supine Exercise Name Trunk rotation stretch Side bilateral Reps/Minutes x 30SH x 2 reps Comments HEP comp 1 Supine Exercise Name Pirformis stretch Side bilateral Reps/Minutes x 30SH x 2 Comments HEP comp Prone Exercises 2 Prone Exercise Name Hip extnsion bilaterally Reps/Minutes x 10 reps x 2 Comments edge of table 1 Prone Exercise Name Quads stertch Reps/Minutes x 30 sh x2 reps Comments HEP comp Sidelying Exercises 2 Sidelying Exercise Name ITB stretch Reps/Minutes x 30SH x 2 reps Comments HEP comp 1 Sidelying Exercise Name Clamshell Resistance Lv2 Reps/Minutes x 15 reps Comments HEP comp Other Exercises 3 Other Exercise Name Waist to hip lift: body mechanics Resistance 30Lbs Reps/Minutes x 5 reps 2 Other Exercise Name Standing cable trunlk rotation Reps/Minutes x 10reps each side Comments slight knee bent in lunge position 1 Other Exercise Name Wall squat shoulder front raises Resistance 5lbs Reps/Minutes x 10 reps x5 SH Self-Care/Home Management Treatment Education Patient Education Body Mechanics Home Exercise Program Joint Protection Pain Management Posture Other Education Explained the imporatnce of complying to HEP PT-OP-R Modalities Start: 09/29/18 08:06 Freq: Status: Active Protocol: Document 11/12/18 12:51 EA (Rec: 11/12/18 12:57 EA [id number]) Electric Stimulation Electric Stimulation Interferential Current (IFC) Body Location Left paralumbars, QL Duration (Minutes) 15 Intensity 12 Combined With Heat/Cold Hot Pack PT-OP-T Assessment and Plan Start: 09/29/18 08:06 Freq: Status: Active Protocol: Document 11/19/18 12:41 EA (Rec: 11/19/18 12:50 EA [id number]) Physical Therapy Assessment Goals Four Impairment No HEP in place Care Home Goal (LTG) Patient will exhibit excellent understanding to HEP and will comply to recommended frequency LTG Duration Goal reached Three Impairment Impaired Lumbar ROM Lead Project Engineer Goal (LTG) Patient will exhibit normal Lumbar ROM to improve functional mobility. LTG Duration Goal reached Two Impairment Impaired sitting tolerance Care Home Goal (LTG) Patient will sit > 30 mins with no discomfort or increase in symptoms LTG Duration Goal met One Impairment Low back pain Oswetry impairment score of 12/50 Lead Project Engineer Goal (LTG) Oswetry impairment score of 0/ 10 LTG Duration 4 wks (currently at 11/06 Assessment Summary Assessment Patient is discharge to home exercises program today. Patient functional mobility is improved at the time of discharge. Physical Therapy Plan Discharge Physical Therapy Discharge Reasons Goals Met
--- NOTE | 2018-11-19 12:59 | PT.OPDS ---
Current Diagnoses Dorsalgia, unspecified (11/19/18) Provider Visit Care Team Role Provider Type Katarina Bobo MD Attending Provider Physician Primary Care Provider Specialty: Family Practice Address: [address] [place] [address], [facility] Email: [email or web address] Visit Number Visit Number 6 Discharge Summary PT-OP-B Current Condition Start: 09/29/18 08:06 Freq: Status: Active Protocol: Document 09/29/18 08:07 EA (Rec: 09/29/18 08:15 EA [id number]) Current Condition History of Current Condition Onset Date 09/29/18 Current Complaints Localized low back pain L > R History of Current Condition Present complaint of low back pain has been chronic for almost 5 years ago with no reports high severity until two months with no known reasons; 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 Patient reports have had previous history when was 20 y /o with same condition and was completely resolve with chiropractor. Pt reports prescribed medication helps a bit but not completely well. No X-ray or other diagnostis imaging performed in the past. Prior Treatments and Tests None Identified Future Testing and Treatments Planned None identified at the moment. Treatment Goals Patient/Caregiver Goals Patient to get rid of the pain so he perform his tasks at work and at home without limitation. Prior Functional Status Baseline Function- ADL's Independent Baseline Function- Mobility Independent Baseline Function- Gait Indep Baseline Function- Work/School No functional limitation at all since last year Current Functional Impairments (Reported) Functional Limitations- ADL's Independent with minimal difficulty with all bending and floor to waist lfting activities Functional Limitations- Mobility/Gait Independent with no limitation Functional Limitations- Work/School Indep with min difficulty with bending and lifting activities PT-OP-C Subjective Start: 09/29/18 08:06 Freq: Status: Active Protocol: Document 11/19/18 12:41 EA (Rec: 11/19/18 12:50 EA [id number]) OP-PT Subjective Patient Comments Patient Comments Pt states My low back is definitely got lot better; states he is okay to discharge a now to home exercises program. Patient Reported Progress Improving PT-OP-F Manual Assessment Start: 09/29/18 08:06 Freq: Status: Active Protocol: Document 09/29/18 15:46 EA (Rec: 09/29/18 15:52 EA [id number]) Manual Assessments Soft Tissue Assessment Soft Tissue Mobility Assessment Tightness to both calves, Paralumbars PT-OP-G Mobility & Gait Start: 09/29/18 08:06 Freq: Status: Active Protocol: Document 09/29/18 15:54 EA (Rec: 09/29/18 15:54 EA [id number]) OP Gait Assessment Gait Gait Assistance Required: Independent Assistive Devices Assistive Device None Gait Deviations General Gait Pattern Within Normal Limits PT-OP-J Posture/Palpation/Skin Start: 09/29/18 08:06 Freq: Status: Active Protocol: Document 11/19/18 12:50 EA (Rec: 11/19/18 12:51 EA [id number]) Palpation Assessment Location One Palpation Findings Tenderness Palpation Details no noted signs of tenderness at this time. PT-OP-K Range of Motion Start: 09/29/18 08:06 Freq: Status: Active Protocol: Document 11/19/18 12:50 EA (Rec: 11/19/18 12:51 EA [id number]) Lumbar Spine Range of Motion Lumbar Spine Active Percentage Testing Position Standing Flexion 100 Extension 100 Rotation Left 100 Rotation Right 100 Lateral Flexion Left 90 Lateral Flexion Right 90 Comments Improved ROM noted at this time. PT-OP-L Special Tests Start: 09/29/18 08:06 Freq: Status: Active Protocol: Document 09/29/18 15:46 EA (Rec: 09/29/18 15:52 EA [id number]) Special Tests Lumbar Spine Special Tests Slump Test Results negative Stork Test Test Results Neg Straight Leg Raise Test Results negative Other- 1 Test Results Gaenlen's (+) to left SI joint PT-OP-M Strength Start: 09/29/18 08:06 Freq: Status: Active Protocol: Document 09/29/18 15:43 EA (Rec: 09/29/18 15:46 EA [id number]) Trunk Strength Trunk Manual Muscle Testing Testing Position Supine Flexion 4+ Good+ Extension 4+ Good+ Rotation Left 4+ Good+ Rotation Right 4+ Good+ Lateral Flexion Left 4+ Good+ Lateral Flexion Right 4+ Good+ Hip Strength Hip Manual Muscle Testing Right Reason Not Measured WFL Left Reason Not Measured WFL Knee Strength Knee Manual Muscle Testing Right Reason Not Measured WFL Left Reason Not Measured WFL Ankle/Foot Strength Ankle and Foot Manual Muscle Testing Right Reason Not Measured WFL Left Reason Not Measured WFL PT-OP-T Assessment and Plan Start: 09/29/18 08:06 Freq: Status: Active Protocol: Document 11/19/18 12:41 EA (Rec: 11/19/18 12:50 EA [id number]) Physical Therapy Assessment Goals Four Impairment No HEP in place Half-Way Goal (LTG) Patient will exhibit excellent understanding to HEP and will comply to recommended frequency LTG Duration Goal reached Three Impairment Impaired Lumbar ROM Meat Service Team Member Goal (LTG) Patient will exhibit normal Lumbar ROM to improve functional mobility. LTG Duration Goal reached Two Impairment Impaired sitting tolerance Half-Way Goal (LTG) Patient will sit > 30 mins with no discomfort or increase in symptoms LTG Duration Goal met One Impairment Low back pain Oswetry impairment score of 12/50 Half-Way Goal (LTG) Oswetry impairment score of 0/ 10 LTG Duration 4 wks (currently at 11/06 Assessment Summary Assessment Patient is discharge to home exercises program today. Patient functional mobility is improved at the time of discharge. Physical Therapy Plan Discharge Physical Therapy Discharge Reasons Goals Met
== END 2019-03-10 12:04 | disposition home or self-care (01) ==
LOC: PHYS 12:15
PROVIDERS: PCP Family Medicine; Visit Provider Family Medicine
DX: M54.9 Dorsalgia, unspecified (principal)
CPT/HCPCS: 97014; 97110; 97140; 97161; 97535; G0283

== ENCOUNTER → 2019-12-18 08:23 | Outpatient (CLI) | payer OTHER, SELFPAY ==
[2019-12-18 09:29] LABS: Add Manual Diff / Slide Review NO; Basophils Absolute Auto 0 /uL (0-100); Basophils Percent Auto 0.5 % (0-2); Eosinophils Absolute Auto 200 /uL (0-450); Eosinophils Percent Auto 3.8 % (2-4); Hematocrit 45.9 % (41-53); Hemoglobin 15.6 g/dL (13.5-17.5); Lymphocytes Absolute Auto 1200 /uL (1100-4500); Lymphocytes Percent Auto 23.9 % (25-40); Mean Corpuscular HGB Conc 34.1 % (30-36); Mean Corpuscular Hemoglobin 28.6 PG (26-34); Mean Corpuscular Volume 83.9 fL (80-100); Monocytes Absolute Auto 600 /uL (0-900); Monocytes Percent Auto 11.1 % (3-14); Neutrophils Absolute Auto 3000 /uL (1500-7000); Neutrophils Percent Auto 60.7 % (50-75); Platelet Count 215 X10^3/uL (150-400); Red Blood Cell Count 5.47 X10^6/uL (4.5-5.9)
[2019-12-18 09:48] LABS: Lithium < 0.2 mmol/L (0.6-1.2)
[2019-12-18 09:52] LABS: Alanine Aminotransferase 33 IU/L (<50); Albumin 4.9 g/dL (3.5-5.0); Albumin Globulin Ratio 1.8 (1.0-2.8); Alkaline Phosphatase 61 U/L (38-126); Aspartate Aminotransferase 35 IU/L (17-59); Bilirubin Total 0.5 mg/dL (0.2-1.3); Blood Urea Nitrogen 15 mg/dL (9-20); Calcium 10.1 mg/dL (8.4-10.2); Carbon Dioxide 27 mmol/L (22-32); Chloride 101 mmol/L (98-107); Estimated Glomerular Filt Rate > 60.0 mL/min (>60); Globulin 2.8 g/dL (1.7-4.1); Glucose 114 mg/dL (70-100); HEMOLYSIS < 15 (0-50); Potassium 4.7 mmol/L (3.4-5.1); Sodium 139 mmol/L (137-145); Total Protein 7.7 g/dL (6.3-8.2)
[2019-12-18 10:21] LABS: Thyroid Stimulating Hormone 1.48 uIU/mL (0.47-4.68)
== END ==
PROVIDERS: PCP Family Medicine; Referring Provider Psychiatry & Neurology Psychiatry; Visit Provider Psychiatry & Neurology Psychiatry
DX: F33.9 Major depressive disorder, recurrent, unspecified (principal); F34.1 Dysthymic disorder; F43.9 Reaction to severe stress, unspecified; F41.9 Anxiety disorder, unspecified
CPT/HCPCS: 36415; 80053; 80178; 84443; 85025

== ENCOUNTER → 2020-06-20 07:51 | Outpatient (CLI) | payer OTHER, SELFPAY ==
--- NOTE | 2020-06-20 07:57 | DI.RAD.S_ITS ---
PROCEDURE: FL BARIUM SWALLOW INDICATIONS: pain with swallowing COMPARISON: None. FINDINGS: Function: There is normal esophageal peristalsis. No elicited gastroesophageal reflux. There is normal transit of a calibrated barium tablet through the esophagus into the stomach. Morphology: Air-contrast images demonstrate normal mucosal morphology. Single contrast views show no esophageal strictures, extrinsic mass effects, or diverticula. Limited images of the stomach demonstrate normal appearance. IMPRESSION: Negative examination as above. Dictated by: Navin Jane M.D. on 06/20/2020 at 13:03 Approved by: Navin Jane M.D. on 06/20/2020 at 13:05
[2020-06-20 08:50] LABS: Lithium 0.2 mmol/L (0.6-1.2)
== END ==
PROVIDERS: PCP Family Medicine; Referring Provider Psychiatry & Neurology Psychiatry; Visit Provider Family Medicine
DX: R13.10 Dysphagia, unspecified (principal); F34.1 Dysthymic disorder; F33.9 Major depressive disorder, recurrent, unspecified; F43.9 Reaction to severe stress, unspecified
CPT/HCPCS: 36415; 74220; 80178

== ENCOUNTER → 2020-07-13 11:15 | Outpatient (CLI) | payer OTHER, SELFPAY ==
--- NOTE | 2020-07-13 11:16 | DI.RAD.S_ITS ---
PROCEDURE: XR CERVICAL SPINE 2V OR 3V INDICATIONS: neck pain with radiculopathy TECHNIQUE: 3 view(s) of the cervical spine were acquired. COMPARISON: None. FINDINGS: Bones: No fractures or dislocations to the T1 level. The lateral masses of C1 appear intact on the odontoid view. No suspicious bony lesions. Note is made of mild degenerative disc height reduction and endplate mild osteophyte formation at C5-6. Soft tissues: No prevertebral soft tissue swelling. IMPRESSION: Mild C5-6 degenerative disc disease with disc height reduction to the degree that disc herniation conceivably could be present. Depending on the clinical status follow-up by cervical MR scanning may be warranted. Dictated by: Benito Mercedes M.D. on 07/13/2020 at 13:15 Approved by: Benito Mercedes M.D. on 07/13/2020 at 13:18
== END ==
PROVIDERS: PCP Family Medicine; Referring Provider Family Medicine; Visit Provider Family Medicine
DX: M50.122 Cervical disc disorder at C5-C6 level with radiculopathy (principal)
CPT/HCPCS: 72040

== ENCOUNTER → 2020-07-18 06:56 | Outpatient (CLI) | payer OTHER, SELFPAY ==
--- NOTE | 2020-07-18 06:58 | DI.MRI.S_ITS ---
PROCEDURE: MR CERVICAL SPINE WO CON INDICATIONS: acute neck and shoulder pain, adnormal finding on cspine xr TECHNIQUE: Noncontrast sagittal T1 spin echo and T2 fast spin echo, sagittal STIR, foraminal oblique sagittal T2 fast spin echo, and axial gradient echo or T2 fast spin echo through the cervical spine. COMPARISON: [facility], CR, XR CERVICAL SPINE 2V OR 3V, 07/13/2020, 11:05. FINDINGS: Image quality: Limited by patient motion. Alignment and Curvature: There is normal bony alignment. Bone Marrow: Marrow demonstrates normal overall signal. Spinal Cord: Visualized spinal cord has normal size and signal. No cerebellar tonsillar herniation. Paraspinous Soft Tissues: No paravertebral masses. Prevertebral soft tissues are normal in thickness. C2-C3: Normal appearance. C3-C4: Normal appearance. C4-C5: Loss of disc signal. Mild, diffuse disc bulge. Mild narrowing of the central canal. No neural foraminal narrowing. No neural compression. C5-C6: Loss of disc signal and slight loss of disc height. Mild to moderate diffuse disc bulge. Severe narrowing of the central canal with slight compression of the cervical spinal cord. Mild bilateral uncovertebral joint hypertrophy. Mild bilateral neural foraminal narrowing. C6-C7: Loss of disc signal. Mild to moderate diffuse disc bulge. Moderate narrowing of the central canal. Mild bilateral uncovertebral joint hypertrophy. Mild bilateral neural foraminal narrowing. No neural compression. C7-T1: Normal appearance. IMPRESSION: 1. Image quality limited by patient motion artifact. 2. Multilevel degenerative disc disease. 3. Mild multilevel uncovertebral joint hypertrophy. 4. Severe C5-C6 central canal narrowing with slight compression of the cervical spinal cord. 5. No significant neural foraminal narrowing. Dictated by: Dacia Hawkins MD, PhD on 07/18/2020 at 11:25 Approved by: Dacia Hawkins MD, PhD on 07/18/2020 at 12:06
== END ==
PROVIDERS: PCP Family Medicine; Referring Provider Family Medicine; Visit Provider Family Medicine
DX: M62.838 Other muscle spasm (principal); R68.89 Other general symptoms and signs; M25.519 Pain in unspecified shoulder; M50.322 Other cervical disc degeneration at C5-C6 level; M48.02 Spinal stenosis, cervical region
CPT/HCPCS: 72141

== ENCOUNTER → 2020-10-27 09:05 | Outpatient (CLI) | payer OTHER, SELFPAY ==
[2020-10-27 10:56] LABS: Lithium 0.5 mmol/L (0.6-1.2)
== END ==
PROVIDERS: PCP Family Medicine; Referring Provider Psychiatry & Neurology Psychiatry; Visit Provider Psychiatry & Neurology Psychiatry
DX: F33.9 Major depressive disorder, recurrent, unspecified (principal); F34.1 Dysthymic disorder; F43.9 Reaction to severe stress, unspecified
CPT/HCPCS: 36415; 80178

== ENCOUNTER → 2020-11-08 14:39 | Outpatient (CLI) | payer OTHER, SELFPAY ==
--- NOTE | 2020-11-08 14:41 | DI.RAD.S_ITS ---
PROCEDURE: XR KNEE RT 3V INDICATIONS: R knee pain x 6 months, swelling x 3 weeks TECHNIQUE: 3 views of the knee were acquired. COMPARISON: [facility], , KNEE 3V LEFT, 04/22/2017, 8:04. [facility], , KNEE 3V LEFT, 06/28/2016, 16:19. FINDINGS: Bones: No fractures or dislocations. No suspicious bony lesions. Soft tissues: No joint effusion. No suspicious soft tissue calcifications. IMPRESSION: No trauma found. 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 Dictated by: Benito Mercedes M.D. on 11/08/2020 at 15:27 Approved by: Benito Mercedes M.D. on 11/08/2020 at 15:28
== END ==
PROVIDERS: PCP Family Medicine; Referring Provider Registered Nurse Diabetes Educator; Visit Provider Registered Nurse Diabetes Educator
DX: M25.561 Pain in right knee (principal)
CPT/HCPCS: 73562

== ENCOUNTER → 2021-02-15 07:57 | Outpatient (CLI) | payer OTHER, SELFPAY ==
[2021-02-15 08:49] LABS: Add Manual Diff / Slide Review NO; Basophils Absolute Auto 0 /uL (0-100); Basophils Percent Auto 0.8 % (0-2); Eosinophils Absolute Auto 200 /uL (0-450); Eosinophils Percent Auto 3.1 % (2-4); Hematocrit 44.3 % (41-53); Hemoglobin 14.9 g/dL (13.5-17.5); Lymphocytes Absolute Auto 1200 /uL (1100-4500); Lymphocytes Percent Auto 21.4 % (25-40); Mean Corpuscular HGB Conc 33.6 % (30-36); Mean Corpuscular Hemoglobin 28.7 PG (26-34); Mean Corpuscular Volume 85.3 fL (80-100); Monocytes Absolute Auto 400 /uL (0-900); Monocytes Percent Auto 7.5 % (3-14); Neutrophils Absolute Auto 3800 /uL (1500-7000); Neutrophils Percent Auto 67.2 % (50-75); Platelet Count 242 X10^3/uL (150-400); Red Blood Cell Count 5.19 X10^6/uL (4.5-5.9); Red Cell Distribution Width 13.2 % (11.6-14.8); White Blood Cell Count 5.7 X10^3/uL (4.5-11.0)
[2021-02-15 09:05] LABS: Alanine Aminotransferase 22 IU/L (<50); Albumin 4.4 g/dL (3.5-5.0); Albumin Globulin Ratio 1.6 (1.0-2.8); Alkaline Phosphatase 54 U/L (38-126); Aspartate Aminotransferase 28 IU/L (17-59); BUN Creatinine Ratio 10.3 (6-22); Bilirubin Total 0.6 mg/dL (0.2-1.3); Blood Urea Nitrogen 10 mg/dL (9-20); Calcium 9.7 mg/dL (8.4-10.2); Carbon Dioxide 27 mmol/L (22-32); Chloride 104 mmol/L (98-107); Estimated Glomerular Filt Rate > 60.0 mL/min (>60); Globulin 2.8 g/dL (1.7-4.1); Glucose 117 mg/dL (70-100); HEMOLYSIS < 15 (0-50); Potassium 4.2 mmol/L (3.4-5.1); Sodium 138 mmol/L (137-145); Total Protein 7.2 g/dL (6.3-8.2)
[2021-02-15 09:37] LABS: Lithium 0.5 mmol/L (0.6-1.2)
== END ==
PROVIDERS: PCP Family Medicine; Referring Provider Psychiatry & Neurology Psychiatry; Visit Provider Psychiatry & Neurology Psychiatry
DX: F33.9 Major depressive disorder, recurrent, unspecified (principal); F43.9 Reaction to severe stress, unspecified; G47.00 Insomnia, unspecified
CPT/HCPCS: 36415; 80053; 80178; 84443; 85025

== ENCOUNTER → 2021-05-17 07:56 | Outpatient (CLI) | payer OTHER, SELFPAY ==
--- NOTE | 2021-05-17 07:56 | DI.MRI.S_ITS ---
PROCEDURE: MR KNEE RT WO CON INDICATIONS: R knee pain TECHNIQUE: Noncontrast sagittal PD fast spin echo and T2 fast spin echo with fat saturation, sagittal 3-D FLASH with fat saturation; coronal T1 spin echo and PD fast spin echo with fat saturation, and axial PD fast spin echo with fat saturation through the knee. COMPARISON: None. FINDINGS: Image quality: Excellent. Menisci: The medial and lateral menisci demonstrate normal morphology and internal signal. The meniscal root ligaments appear intact. Cruciate ligaments: The anterior and posterior cruciate ligaments appear intact. Medial structures: Low-grade proximal MCL sprain/partial-thickness tear near its femoral insertion is seen. The posterior oblique ligament, semimembranosus tendon insertions, oblique popliteal ligament, and meniscocapsular junction appear intact. Visualized portions of the pes anserinus tendons appear normal. No abnormal bursal fluid. Lateral structures: The lateral collateral ligament, long and short heads of the biceps femoris tendon appear intact. The popliteus tendon appears normal; the popliteofibular ligament appears intact. The posterosuperior and anteroinferior popliteomeniscal fascicles appear intact. The arcuate and fabellofibular ligaments appear intact, on either side of the lateral inferior geniculate artery. Iliotibial band appears normal. Anterior structures: Distal quadriceps tendon is intact. Tendinosis and low-grade intrasubstance partial-thickness tear involving proximal patellar tendon near its inferior patellar insertion is seen. Mild soft tissue swelling anterior to patella and proximal patellar tendon is also noted. Patellar alignment is normal. No femoral trochlear dysplasia or ventral trochlear prominence. No edema in the infrapatellar fat pad. Bones and cartilage: No bone marrow contusions or fractures. Low-grade chondromalacia in medial the tibial compartment is seen. Low to moderate grade focal area of chondromalacia patella involving lateral facet of patella cartilage near apex is also seen. Joint space: There is moderate amount of joint fluid, no gross intra-articular loose body. No Ferrell's cyst. Normal appearing synovial plicae are incidentally noted. IMPRESSION: 1. No evidence of focal meniscal tear. 2. Cruciate ligaments are intact. 3. Very low-grade proximal MCL sprain/partial-thickness tear near its femoral insertion. 4. Proximal patellar tendinosis and low-grade partial-thickness tear near its inferior patellar insertion. 5. 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 Low to moderate grade focal area of chondromalacia patella involving lateral facet of patella cartilage near apex. Moderate amount of joint fluid, no gross loose body. No fracture or dislocation. Dictated by: Kofi Valle M.D. on 05/17/2021 at 9:23 Approved by: Kofi Valle M.D. on 05/17/2021 at 9:26
== END ==
PROVIDERS: PCP Family Medicine; Referring Provider Family Medicine; Visit Provider Family Medicine
DX: M25.561 Pain in right knee (principal); M22.41 Chondromalacia patellae, right knee
CPT/HCPCS: 73721

== ENCOUNTER → 2021-07-24 09:12 | Outpatient (CLI) | payer OTHER, SELFPAY ==
[2021-07-24 11:43] LABS: Lithium 0.4 mmol/L (0.6-1.2)
== END ==
PROVIDERS: PCP Family Medicine; Referring Provider Psychiatry & Neurology Psychiatry; Visit Provider Psychiatry & Neurology Psychiatry
DX: F33.9 Major depressive disorder, recurrent, unspecified (principal); F34.1 Dysthymic disorder; F43.9 Reaction to severe stress, unspecified
CPT/HCPCS: 80178

== ENCOUNTER → 2021-08-10 07:38 | Outpatient (CLI) | payer OTHER, SELFPAY ==
[2021-08-10 08:22] LABS: COVID19 -Nasal RAPID Negative (Negative)
== END ==
PROVIDERS: PCP Family Medicine; Referring Provider Nurse Practitioner; Visit Provider Nurse Practitioner
DX: Z20.822 Contact with and (suspected) exposure to COVID-19 (principal)
CPT/HCPCS: 87635

== ENCOUNTER → 2022-01-15 07:46 | Outpatient (CLI) | payer OTHER, SELFPAY ==
[2022-01-15 08:47] LABS: Add Manual Diff / Slide Review NO; Basophils Absolute Auto 0 /uL (0-100); Basophils Percent Auto 0.7 % (0-2); Eosinophils Absolute Auto 200 /uL (0-450); Eosinophils Percent Auto 4.6 % (2-4); Hematocrit 43.2 % (41-53); Hemoglobin 14.5 g/dL (13.5-17.5); Lymphocytes Absolute Auto 1200 /uL (1100-4500); Lymphocytes Percent Auto 22.4 % (25-40); Mean Corpuscular HGB Conc 33.4 % (30-36); Mean Corpuscular Hemoglobin 28.5 PG (26-34); Mean Corpuscular Volume 85.4 fL (80-100); Monocytes Absolute Auto 400 /uL (0-900); Monocytes Percent Auto 7.3 % (3-14); Neutrophils Absolute Auto 3500 /uL (1500-7000); Platelet Count 242 X10^3/uL (150-400); Red Blood Cell Count 5.06 X10^6/uL (4.5-5.9); Red Cell Distribution Width 13.1 % (11.6-14.8); White Blood Cell Count 5.4 X10^3/uL (4.5-11.0)
[2022-01-15 08:55] LABS: Alanine Aminotransferase 23 IU/L (<50); Albumin 4.5 g/dL (3.5-5.0); Albumin Globulin Ratio 1.6 (1.0-2.8); Alkaline Phosphatase 45 U/L (38-126); Aspartate Aminotransferase 29 IU/L (17-59); BUN Creatinine Ratio 14.7 (6-22); Bilirubin Total 0.8 mg/dL (0.2-1.3); Blood Urea Nitrogen 14 mg/dL (9-20); Calcium 9.6 mg/dL (8.4-10.2); Carbon Dioxide 26 mmol/L (22-32); Chloride 105 mmol/L (98-107); Cholesterol 232 mg/dL (140-199); Estimated Glomerular Filt Rate > 60.0 mL/min (>60); Globulin 2.8 g/dL (1.7-4.1); Glucose 164 mg/dL (70-100); HDL Cholesterol 96 mg/dL (40-60); HEMOLYSIS < 15 (0-50); LDL Cholesterol Calculated 117 mg/dL (<100); Potassium 4.2 mmol/L (3.4-5.1); Sodium 138 mmol/L (137-145); Total Protein 7.3 g/dL (6.3-8.2); Triglycerides 94 mg/dL (35-150)
[2022-01-15 09:15] LABS: Lithium 0.4 mmol/L (0.6-1.2)
[2022-01-15 09:49] LABS: Thyroid Stimulating Hormone 1.91 uIU/mL (0.47-4.68)
== END ==
PROVIDERS: PCP Family Medicine; Referring Provider Psychiatry & Neurology Psychiatry; Visit Provider Psychiatry & Neurology Psychiatry
DX: F33.9 Major depressive disorder, recurrent, unspecified (principal); F34.1 Dysthymic disorder; F42.9 Obsessive-compulsive disorder, unspecified; F43.9 Reaction to severe stress, unspecified; G47.00 Insomnia, unspecified
CPT/HCPCS: 36415; 80053; 80061; 80178; 84443; 85025

== ENCOUNTER → 2022-04-03 07:31 | Outpatient (CLI) | payer OTHER, SELFPAY ==
[2022-04-03 09:43] LABS: Alanine Aminotransferase 23 IU/L (<50); Albumin 4.6 g/dL (3.5-5.0); Albumin Globulin Ratio 1.8 (1.0-2.8); Alkaline Phosphatase 53 U/L (38-126); Aspartate Aminotransferase 32 IU/L (17-59); BUN Creatinine Ratio 8.6 (6-22); Bilirubin Total 0.9 mg/dL (0.2-1.3); Blood Urea Nitrogen 9 mg/dL (9-20); Calcium 9.6 mg/dL (8.4-10.2); Carbon Dioxide 28 mmol/L (22-32); Chloride 102 mmol/L (98-107); Estimated Glomerular Filt Rate > 60 mL/min (>60); Globulin 2.6 g/dL (1.7-4.1); Glucose 93 mg/dL (70-100); HEMOLYSIS < 15 (0-50); Potassium 4.4 mmol/L (3.4-5.1); Sodium 137 mmol/L (137-145); Total Protein 7.2 g/dL (6.3-8.2)
[2022-04-03 09:47] LABS: Lithium 0.7 mmol/L (0.6-1.2)
[2022-04-03 10:39] LABS: Hemoglobin A1C% w Est Avg Glu 5.7 % (4.0-6.0)
== END ==
PROVIDERS: PCP Family Medicine; Referring Provider Psychiatry & Neurology Psychiatry; Visit Provider Psychiatry & Neurology Psychiatry
DX: F34.1 Dysthymic disorder (principal); F43.10 Post-traumatic stress disorder, unspecified; F33.9 Major depressive disorder, recurrent, unspecified; R73.9 Hyperglycemia, unspecified
CPT/HCPCS: 36415; 80053; 80178; 83036

== ENCOUNTER → 2022-07-11 09:32 | Outpatient (CLI) | payer OTHER, SELFPAY ==
[2022-07-11 11:03] LABS: Alanine Aminotransferase 24 IU/L (<50); Albumin 4.6 g/dL (3.5-5.0); Albumin Globulin Ratio 1.5 (1.0-2.8); Alkaline Phosphatase 56 U/L (38-126); Aspartate Aminotransferase 30 IU/L (17-59); BUN Creatinine Ratio 16.5 (6-22); Bilirubin Total 0.4 mg/dL (0.2-1.3); Blood Urea Nitrogen 14 mg/dL (9-20); Calcium 9.9 mg/dL (8.4-10.2); Carbon Dioxide 30 mmol/L (22-32); Chloride 102 mmol/L (98-107); Estimated Glomerular Filt Rate > 60 mL/min (>60); Globulin 3.1 g/dL (1.7-4.1); Glucose 93 mg/dL (70-100); HEMOLYSIS < 15 (0-50); Potassium 4.5 mmol/L (3.4-5.1); Sodium 139 mmol/L (137-145); Total Protein 7.7 g/dL (6.3-8.2)
== END ==
PROVIDERS: PCP Family Medicine; Referring Provider Family Medicine; Visit Provider Family Medicine
DX: R19.7 Diarrhea, unspecified (principal)
CPT/HCPCS: 36415; 80053

== ENCOUNTER → 2022-07-18 09:01 | Outpatient (CLI) | payer OTHER, SELFPAY ==
--- NOTE | 2022-07-18 09:24 | DI.CT.S_ITS ---
PROCEDURE: CT ABDOMEN PELVIS W CON INDICATIONS: LLQ pain and diarrhea TECHNIQUE: After the administration of oral and intravenous contrast, axial sections were acquired from the lung bases to the pubic symphysis. Coronal and sagittal reformats were performed. For radiation dose reduction, the following was used: automated exposure control, adjustment of mA and/or kV according to patient size. COMPARISON:None. FINDINGS: Image quality: Excellent. Lung bases: Unremarkable. Heart: No significant findings. ABDOMEN: Liver: Unremarkable. Gallbladder: Unremarkable. Biliary ducts: Unremarkable. Pancreas: Unremarkable. Spleen: Unremarkable. Adrenal Glands: Unremarkable. Kidneys and Ureters: Unremarkable. Stomach and Bowel: Stomach, small bowel loops, and colon are unremarkable. The appendix is thin walled and gas filled. Peritoneum: No abnormal intraperitoneal fluid. No free air. Ventral Wall: No hernia. Abdominal Nodes: No retroperitoneal or mesenteric adenopathy by size criteria. Vessels: Aorta and inferior vena cava are normal in size. PELVIS: Pelvic Organs: Unremarkable. Bladder: Unremarkable. Pelvic Nodes: No enlarged lymph nodes. Miscellaneous: There is a small fat containing left inguinal hernia. Bones: Unremarkable. IMPRESSION: 1. No acute intra-abdominal findings. Normal appendix. 2. No findings to explain left lower quadrant pain. Dictated by: Wanda Aguirre M.D. on 07/18/2022 at 10:15 Approved by: Wanda Aguirre M.D. on 07/18/2022 at 10:21
== END ==
PROVIDERS: PCP Family Medicine; Referring Provider Family Medicine; Visit Provider Family Medicine
DX: R10.32 Left lower quadrant pain (principal); R19.7 Diarrhea, unspecified; K40.90 Unilateral inguinal hernia, without obstruction or gangrene, not specified as recurrent
CPT/HCPCS: 74177

== ENCOUNTER → 2022-08-23 08:48 | Outpatient (CLI) | payer OTHER, SELFPAY ==
[2022-08-23 10:22] LABS: COVID19 -Nasal RAPID Negative (Negative)
== END ==
PROVIDERS: PCP Family Medicine; Visit Provider Surgery
DX: Z20.822 Contact with and (suspected) exposure to COVID-19 (principal); Z01.812 Encounter for preprocedural laboratory examination
CPT/HCPCS: 87635; C9803

== ENCOUNTER 2022-08-24 13:53 | Day surgery (SDC) | payer OTHER, SELFPAY ==
[2022-08-23 14:49] VITALS: BMI 27.1
[2022-08-24] VITALS (10 sets, daily range): BP systolic 151–187; BP diastolic 85–104; PULSE 67–106; RESP 10–25; TEMP 36.4–36.9; O2SAT 94–100; BMI 27.6
[2022-08-24] MEDS: LACTATED RINGERS 1,000 ML 100 ML IV (14:33)
--- NOTE | 2022-08-24 14:44 | PM.PREOP ---
Pre-operative Note Interval Note History & Physical reviewed/Exam performed by Physician: Yes Changes to H&P: No
--- NOTE | 2022-08-24 14:47 | SUR.OPER ---
Supine on padded OR bed, head on pillow, arms secured on padded arm boards at <90 degrees abduction, legs uncrossed, safety belt at thigh, tape over blanket over lower legs.
[2022-08-24] MEDS: CLINDAMYCIN 900 MG/50 ML PIGGYBACK 50 MG IV (15:00)
[2022-08-24] MEDS: BUPIVACAINE 0.25% (PF) VIAL 30 ML INJ (15:15)
--- NOTE | 2022-08-24 15:57 | PM.OP.1 ---
Operative Date/Time/Diagnoses Date of procedure: 08/24/22 Time of procedure: 15:58 Pre-op diagnosis: Left inguinal hernia Post-op diagnosis: same Procedure & Clinicians Procedure: Open left inguinal repair with mesh Same procedure as scheduled: Yes Indications: Symptomatic reducible inguinal hernia Surgeon: Octavio Baez Yes if Unassisted: Yes Anesthesia Type: General Operative Notes Findings: Indirect defect. No direct floor defect Specimen(s): none sent Estimated Blood Loss (mL): 20 Procedure in detail: The patient was placed supine on the table and bilateral lower extremity compression devices were applied. Anesthesia was induced they were intubated with an LMA and received clindamycin. A time-out was performed. They were prepped and draped in sterile fashion. The left external inguinal ring and the anterior superior iliac crest were identified and marked. 1 finger breath above the inguinal ligament the skin was infiltrated with 0.25% bupivacaine. The skin incision was made, the subcutaneous tissues were divided with electrocautery exposing the external oblique aponeurosis which was then opened along the direction of its fibers. Using blunt dissection the internal oblique aporneurosis was from the external oblique upper leaflet. The cord was carefully dissected away from the inguinal canal adjacent to the pubic tubercle. The cord including the vas deferens, testicular bloody supply, ilioguinal and genital nerve were encircled with a Princess drain. No direct floor defect was identified. The cremasteric fibers surrounding the cord were divided adjacent to the internal ring. The vas deferens and the testicular vessels were preserved and protected. The cord contents were carefully explored. There was a moderate size indirect hernia on the anterior medial aspect of the cord which was skeletonized away from the vas deferens and testicular blood supply. The indirect hernia was skeletonized back to the internal ring. It did not reduce spontaneously into the abdomen and therefore it was ligated with Vicryl and then transected. The stump reduce spontaneously. A 7x 15 cm lightweight Bard Pro Loop hernia mesh was anchored to the insertion of the rectus muscle at the pubic tubercle such that there was approximately 2 cm of tubercle overlap with Ethibond. The inferior edge of the mesh was secured to the shelving edge of the inguinal ligament using Ethibond. Interrupted 3 0 Vicryl suture was used to anchor the superior aspect of the mesh to the conjoined tendon in several places. The tails were then reapproximated loosely around the spermatic cord. The tails of the mesh were then tucked under the external oblique aponeurosis. The repair was checked for hemostasis. The wound was irrigated with sterile saline. The external oblique aponeurosis was reapproximated in a running fashion using 3 0 Vicryl. The subcutaneous tissues were reapproximated with 3 0 Vicryl skin closed with 4 0 Monocryl followed by the application of Dermabond. At the end of the operation I ensured that both testicles were within the scrotum. The sponge instrument count at the end operation was correct. The patient emerged from anesthesia was extubated and transferred to the postoperative care unit in stable condition. A total of 30 ml of of 0.25% bupivicaine was used to infiltrate the skin. Complications: none Post-operative Condition: stable Disposition: same day surgery
[2022-08-24] MEDS: OXYCODONE/ACETAMINOPHEN 5/325 TABLET 1 TAB PO (16:22)
[2022-08-24] MEDS: ONDANSETRON 4 MG/2 ML INJ IV (16:58)
== END 2022-08-24 17:00 | disposition home or self-care (01) ==
PROVIDERS: PCP Family Medicine; Referring Provider Surgery; Visit Provider Surgery
PROC: (CPT 49505; principal; 2022-08-24 15:30)
DX: K40.90 Unilateral inguinal hernia, without obstruction or gangrene, not specified as recurrent (principal); F41.9 Anxiety disorder, unspecified; F32.A Depression, unspecified
CPT/HCPCS: 49505; 82962; J1100; J1885; J2250; J2405; J2704; J3010

== ENCOUNTER 2022-09-30 13:57 | Emergency (ER) | payer OTHER, SELFPAY ==
[2022-09-30 14:17] VITALS: BP 161/96; PULSE 60; RESP 20; TEMP 36.1; O2SAT 97; BMI 27.8
--- NOTE | 2022-09-30 15:09 | DI.US.S_ITS ---
PROCEDURE: US ABDOMEN LIMITED INDICATIONS: inguinal hernia repair TECHNIQUE: Real-time focused scanning was performed of the abdomen, with image documentation. COMPARISON: [facility], CT, CT ABDOMEN PELVIS W CON, 07/18/2022, 9:28. FINDINGS: Scanning is performed at the area of clinical concern involving the left lower quadrant at the site of prior hernia repair. Apparent scarring is seen, without a recurrent hernia. Apparent postsurgical mass can be seen. IMPRESSION: No significant abnormality can be seen at this site of prior hernia repair. No recurrent hernia is identified. Dictated by: Ignacio Mckeon M.D. on 09/30/2022 at 15:04 Approved by: Ignacio Mckeon M.D. on 09/30/2022 at 15:05
[2022-09-30 16:12] VITALS: PULSE 58; O2SAT 99
[2022-09-30 16:13] VITALS: BP 142/84; PULSE 56; O2SAT 99
[2022-09-30 16:30] VITALS: BP 150/97; PULSE 54; O2SAT 100
--- NOTE | 2022-09-30 16:38 | ED_ITS ---
HPI - Recheck/Abnormal Lab/Rx General Chief Complaint: Recheck/Abnormal Lab/Rx Stated Complaint: abdominal pain, post op problems Time Seen by Provider: 09/30/22 16:26 Source: patient Mode of arrival: Ambulatory Limitations: no limitations History of Present Illness HPI narrative: This is a 42-year-old male with history of left inguinal hernia repair in July with Dr. Carlson, patient also has a history of mood disorder or bipolar and is on lithium and bupropion he is unsure which. Patient states 3 days ago h e sneezed has sudden increase in pain in his left inguinal hernia repair site he has not appreciated bulge or skin changes, he states there is a tingling burning pain just above and radiating down towards the left scrotum was states location is similar to where pain was when his hernia was present. Patient denies fevers or chills. No nausea or vomiting. No chest pain or shortness of breath. He has been stooling regularly without any diarrhea constipation, no dysuria urgency or frequency. He denies any right-sided scrotal pain. Has not had penile discharge or other urinary changes. Patient has set up an appointment to follow up with his general surgeon this coming week but has persistent pain even when at rest. He defers anything for pain. He has had prior tendon repair in his hand but denies other surgeries. He states allergic to penicillin. Related Data Home Medications Medication Instructions Recorded Confirmed bupropion HCl 300 mg 24 hr tablet, 300 mg PO QAM 11/08/20 09/06/22 extended release lithium carbonate 300 mg capsule 300 mg PO TID 11/08/20 09/06/22 sertraline 50 mg tablet 50 mg PO DAILY 04/03/22 09/06/22 guanfacine 2 mg tablet 1 mg PO BID 08/24/22 09/06/22 Previous Rx's Medication Instructions Recorded triamcinolone acetonide 0.1 % 1 applic topical BID rash/itching 05/29/22 topical ointment #15 grams acetaminophen 325 mg capsule 650 mg PO QID PRN pain #60 caps 08/24/22 (Tylenol) docusate sodium 100 mg capsule 100 mg PO BID #30 caps 08/24/22 (Colace) ibuprofen 200 mg tablet 400 mg PO Q6H #60 tabs 08/24/22 oxycodone 5 mg tablet 5 mg PO Q6H PRN pain #20 tabs 08/24/22 Allergies Allergy/AdvReac Type Severity Reaction Status Date / Time Penicillins [PENICILLINS] Allergy Severe Rash Verified 09/06/22 13:36 Review of Systems Review of Systems ROS Unobtainable: All systems reviewed & are unremarkable except as noted in HPI and below Patient History Medical History Chicken pox Depression Eczema (~1981) Knee pain, left Sciatica Vision disorder Surgical History H/O hand surgery (07/2017) Family History Grandfather Age: 85 Depression Mother Age: 68 High cholesterol Grandmother Cancer Heart disease Grandfather No problems noted. Social History marital status: household members: spouse and children occupational status: employed Smoking Status: Former smoker alcohol intake: current substance use type: does not use Smoking Status: Former smoker Substance Use Type: does not use Exam Narrative Exam Narrative: GENERAL: Alert and oriented x three, male in mild distress. HEENT: Head normocephalic, atraumatic, EOMI, pupils reactive, face symmetric, moist mucous membranes NECK: Supple, full range of motion CARDIOVASCULAR: Regular rate and rhythm without murmurs, rubs or gallops. RESPIRATORY: Breath sounds equal bilaterally, no wheezes rales or rhonchi. ABDOMEN: Soft, nontender. Normoactive bowel sounds all 4 quadrants. No guarding or rebound, rigidity, no mass. Patient has left lower incision that is clean dry and intact and fully healed. Patient has fullness that feels consistent with scar tissue. There is no bogginess, induration, erythema or skin changes no warmth. On the inferior edge there is a little bit of a drop off that feels consistent with edge of the scar tissue I do not actually feel a defect into the soft tissue, there is no bulge. Patient does not have any significant tenderness over this area. Patient is nontender into the scrotum with no bulge, skin changes or other changes appreciated. : No CVA tenderness. Male genitalia appears normal with no discharge, rashes or skin changes. EXTREMITIES: Normal range of motion, no clubbing or edema. Neurovascularly intact NEUROLOGICAL: Cranial nerves II through XII grossly intact. Moving all extremities SKIN: Warm, dry, no petechiae, no rashes or lesions. Initial Vital Signs Initial Vital Signs: Vital Signs Temperature 97.0 F L 09/30/22 14:17 Pulse Rate 60 09/30/22 14:17 Respiratory Rate 20 09/30/22 14:17 Blood Pressure 161/96 H 09/30/22 14:17 Pulse Oximetry 97 09/30/22 14:17 Oxygen Delivery Method 09/30/22 14:17 Course Orders Ordered: ED Orders 09/30/22 15:09 US abdomen limited Stat 09/30/22 16:39 CT abdomen pelvis w con Stat 09/30/22 16:55 CBC Auto Diff [Complete Blood Count AUTO DIFF] Stat CMP [Comprehensive Metabolic Panel] Stat Lipase Stat Discontinued Medications Oxycodone/Acetaminophen (Oxycodone/Apap 5/325 Prepack) 1 bottle MISC SEEINSTR ONE Stop: 09/30/22 18:55 Last Admin: 09/30/22 18:59 Dose: 1 bottle Documented By: NR Vital Signs Vital signs: Vital Signs - 8 hr 09/30/22 14:17 09/30/22 16:13 09/30/22 16:12 Temperature 97.0 F L Pulse Rate 60 58 L Respiratory Rate 20 Blood Pressure 161/96 H 142/84 H Pulse Oximetry 97 99 Oxygen Delivery Method Room Air 09/30/22 16:13 09/30/22 16:13 09/30/22 16:30 Temperature Pulse Rate 56 L Respiratory Rate Blood Pressure 142/84 H 150/97 H Pulse Oximetry 99 Oxygen Delivery Method 09/30/22 16:30 09/30/22 17:00 09/30/22 19:00 Temperature Pulse Rate 54 L 57 L 59 L Respiratory Rate 18 Blood Pressure 154/93 H Pulse Oximetry 100 98 98 Oxygen Delivery Method Room Air MDM - Recheck/Abnormal Lab/Rx Lab Data Result diagrams: 09/30/22 16:55 09/30/22 16:55 Labs: Lab Results 09/30/22 09/30/22 Range/Units 16:55 16:55 WBC 7.6 (4.5-11.0) X10^3/uL RBC 5.17 (4.5-5.9) X10^6/uL Hgb 14.9 (13.5-17.5) g/dL Hct 43.7 (41-53) % MCV 84.5 (80-100) fL MCH 28.9 (26-34) PG MCHC 34.2 (30-36) % RDW 13.2 (11.6-14.8) % Plt Count 231 (150-400) X10^3/uL Neut % (Auto) 67.2 (50-75) % Lymph % (Auto) 20.4 L (25-40) % [place] % (Auto) 8.3 (3-14) % Eos % (Auto) 3.6 (2-4) % Baso % (Auto) 0.5 (0-2) % Neut # (Auto) 5100 (1806-0014) /uL Lymph # (Auto) 1600 (2037-3611) /uL [place] # (Auto) 600 (0-900) /uL Eos # (Auto) 300 (0-450) /uL Baso # (Auto) 0 (0-100) /uL Sodium 137 (137-145) mmol/L Potassium 4.4 (3.4-5.1) mmol/L Chloride 100 (98-107) mmol/L Carbon Dioxide 30 (22-32) mmol/L BUN 14 (9-20) mg/dL Creatinine 0.84 (0.66-1.25) mg/dL Estimated GFR > 60 (>60) mL/min BUN/Creatinine Ratio 16.7 (6-22) Glucose 108 H (70-100) mg/dL Calcium 9.9 (8.4-10.2) mg/dL Total Bilirubin 0.4 (0.2-1.3) mg/dL AST 29 (17-59) IU/L ALT 28 (<50) IU/L Alkaline Phosphatase 57 (38-126) U/L Total Protein 8.3 H (6.3-8.2) g/dL Albumin 4.8 (3.5-5.0) g/dL Globulin 3.5 (1.7-4.1) g/dL Albumin/Globulin Ratio 1.4 (1.0-2.8) Lipase 73 (23-300) U/L Imaging Data US - abdomen: Radiologist's Impression: Endy Dee??42??M??1980 ? Allergy/Adv: Penicillins Close Abdomen Ultrasound (Signed) Ignacio Mckeon - 09/30/22 Abdomen/Pelvis CT (Signed) TimothyWanda - 07/18/22 Knee MRI (Signed) Kofi Valle - 05/17/21 DI Result CC 11/30/20 Knee X-Ray (Signed) Benito Mercedes - 11/08/20 Knee X-Ray (Cancelled) 11/08/20 Cervical Spine MRI (Signed) Dacia Hawkins - 07/18/20 Cervical Spine X-Ray (Signed) Benito Mercedes - 07/13/20 Barium Swallow X-Ray (Signed) Navin Jane - 06/20/20 Launch?[place] [address] Ultrasound Report Signed Patient: Endy Dee MR#: [id number] : 1980 Acct:[id number] Age/Sex: 42 / M Date of Service: 09/30/22 Loc: ED Accession Number: [id number] ?? Procedure: US abdomen limited Ordering Provider: Sherrie Rhodes D.O. PROCEDURE: US ABDOMEN LIMITED ? INDICATIONS:? inguinal hernia repair ? TECHNIQUE:? Real-time focused scanning was performed of the abdomen, with image documentation.? ? COMPARISON:? [facility], CT, CT ABDOMEN PELVIS W CON, 07/18/2022, 9:28. ? FINDINGS:? Scanning is performed at the area of clinical concern involving the left lower quadrant at the site of prior hernia repair. ? Apparent scarring is seen, without a recurrent hernia.? Apparent postsurgical mass can be seen. ? ? ? IMPRESSION:? No significant abnormality can be seen at this site of prior hernia repair.? No recurrent hernia is identified. ? ? Dictated by: Ignacio Mckeon M.D. on 09/30/2022 at 15:04 ? ? Approved by: Ignacio Mckeon M.D. on 09/30/2022 at 15:05?? MDM Narrative Medical decision making narrative: This is a 42-year-old male who had hernia repair in July, he is had pain at the site with burning and numbness tingling sensation since 3 days ago when he sneezed. There is a little bit of drop off on the edge I suspect this is more from scar tissue. Ultrasound shows scarring, mesh but no obvious hernia. Patient and I discussed follow-up with general surgery I suspect he may have had a little bit injury to the incision itself but I do not feel an actual hernia, ultrasound does not support finding when currently. He quite uncomfortable and would like to pursue further imaging. Plan for labs CT abdomen pelvis and findings include no acute change. Patient's likely irritated the incision itself but no obvious new hernia, no infectious changes or other concerning changes recommended a follow-up with Dr. Carlson short course of pain medication and return precautions discussed. Discharge Plan Departure Patient Disposition: Home Clinical Impression: Left groin pain Activity Restrictions/Additional Instructions: Your imaging today does not show any sign of hernia or other changes to the h ernia repair site. Follow-up with Dr. Carlson at your appointment. You may take ibuprofen up to 800 mg every 8 hours as needed. You may take Percocet 1 tablet every 6 hours. This medication can make you sleepy do not drive, perform hazardous activities or make any major decisions while taking it. This medication will make you constipated please take a stool softener once to twice daily until stools are soft and regular. Please return for fevers, new or worsening abdominal back or flank pain, persistent vomiting, black or bloody stools other new or concerning changes. Prescriptions: No Action lithium carbonate 300 mg capsule 300 mg PO TID triamcinolone acetonide 0.1 % ointment 1 applic topical BID Qty: 15 1RF sertraline 50 mg tablet 50 mg PO DAILY bupropion HCl 300 mg tablet extended release 24 hr 300 mg PO QAM guanfacine 2 mg tablet 1 mg PO BID docusate sodium [Colace] 100 mg capsule 100 mg PO BID Qty: 30 0RF ibuprofen 200 mg tablet 400 mg PO Q6H Qty: 60 0RF oxycodone 5 mg tablet 5 mg PO Q6H PRN (Reason: pain) Qty: 20 0RF acetaminophen [Tylenol] 325 mg capsule 650 mg PO QID PRN (Reason: pain) Qty: 60 0RF Referrals: Katarina Bobo MD [Primary Care Provider] - Visit Report Forms: Patient Portal/API
--- NOTE | 2022-09-30 16:39 | DI.CT.S_ITS ---
PROCEDURE: CT ABDOMEN PELVIS W CON INDICATIONS: L inguinal pain, s/p inguinal hernia repair July TECHNIQUE: After the administration of oral and IV contrast, axial sections were acquired from the lung bases to the pubic symphysis. Coronal and sagittal reformats were performed. For radiation dose reduction, the following was used: automated exposure control, adjustment of mA and/or kV according to patient size. COMPARISON: [facility], US, US ABDOMEN LIMITED, 09/30/2022, 15:38. [facility], CT, CT ABDOMEN PELVIS W CON, 07/18/2022, 9:28. FINDINGS: Image quality: Excellent. Lung bases: Unremarkable. Heart: No significant findings. ABDOMEN: Liver: Unremarkable. Gallbladder: Is largely collapsed at the time of this study Biliary ducts: Unremarkable. Pancreas: Unremarkable. Spleen: Unremarkable. Adrenal Glands: Unremarkable. Kidneys and Ureters: Unremarkable. Stomach and Bowel: Stomach, small bowel loops, and colon are unremarkable. A normal appendix is incidentally noted. Peritoneum: No abnormal intraperitoneal fluid. No free air. Ventral Wall: No hernia. Abdominal Nodes: No retroperitoneal or mesenteric adenopathy by size criteria. Vessels: Aorta and inferior vena cava are normal in size. PELVIS: Pelvic Organs: Unremarkable. Bladder: Unremarkable. Pelvic Nodes: No enlarged lymph nodes. Miscellaneous: Prior left inguinal repair change can be seen. There is an expected amount of inflammatory/scarring change along the repair site. No abscess can be seen. No recurrent hernia can be seen. Bones: Unremarkable. IMPRESSION: Unremarkable postoperative findings of the left groin, with prior hernia repair, with mild scarring/inflammatory change. No abscess collection or other significant postoperative complication can be seen. No recurrent hernia is seen. Additional findings: Normal appendix Dictated by: Ignacio Mckeon M.D. on 09/30/2022 at 16:58 Approved by: Ignacio Mckeon M.D. on 09/30/2022 at 17:00
[2022-09-30 17:00] VITALS: PULSE 57; O2SAT 98
[2022-09-30 17:02] LABS: Add Manual Diff / Slide Review NO; Basophils Absolute Auto 0 /uL (0-100); Basophils Percent Auto 0.5 % (0-2); Eosinophils Absolute Auto 300 /uL (0-450); Eosinophils Percent Auto 3.6 % (2-4); Hematocrit 43.7 % (41-53); Hemoglobin 14.9 g/dL (13.5-17.5); Lymphocytes Absolute Auto 1600 /uL (1100-4500); Lymphocytes Percent Auto 20.4 % (25-40); Mean Corpuscular HGB Conc 34.2 % (30-36); Mean Corpuscular Hemoglobin 28.9 PG (26-34); Mean Corpuscular Volume 84.5 fL (80-100); Monocytes Absolute Auto 600 /uL (0-900); Monocytes Percent Auto 8.3 % (3-14); Neutrophils Absolute Auto 5100 /uL (1500-7000); Neutrophils Percent Auto 67.2 % (50-75); Platelet Count 231 X10^3/uL (150-400); Red Blood Cell Count 5.17 X10^6/uL (4.5-5.9); Red Cell Distribution Width 13.2 % (11.6-14.8); White Blood Cell Count 7.6 X10^3/uL (4.5-11.0)
[2022-09-30 17:23] LABS: Alanine Aminotransferase 28 IU/L (<50); Albumin 4.8 g/dL (3.5-5.0); Albumin Globulin Ratio 1.4 (1.0-2.8); Alkaline Phosphatase 57 U/L (38-126); Aspartate Aminotransferase 29 IU/L (17-59); BUN Creatinine Ratio 16.7 (6-22); Bilirubin Total 0.4 mg/dL (0.2-1.3); Blood Urea Nitrogen 14 mg/dL (9-20); Calcium 9.9 mg/dL (8.4-10.2); Carbon Dioxide 30 mmol/L (22-32); Chloride 100 mmol/L (98-107); Estimated Glomerular Filt Rate > 60 mL/min (>60); Globulin 3.5 g/dL (1.7-4.1); Glucose 108 mg/dL (70-100); HEMOLYSIS 30 (0-50); Lipase 73 U/L (23-300); Potassium 4.4 mmol/L (3.4-5.1); Sodium 137 mmol/L (137-145); Total Protein 8.3 g/dL (6.3-8.2)
[2022-09-30] MEDS: OXYCODONE/APAP 5/325 PREPACK 1 BOTTLE MISC (18:59)
[2022-09-30 19:00] VITALS: BP 154/93; PULSE 59; RESP 18; O2SAT 98
== END 2022-09-30 19:05 | disposition home or self-care (01) ==
PROVIDERS: Emergency Provider Emergency Medicine; PCP Family Medicine
DX: R10.9 Unspecified abdominal pain (principal)
CPT/HCPCS: 74177; 76705; 80053; 83690; 85025; 99281; 99284; Q9967

== ENCOUNTER → 2022-10-08 07:25 | Outpatient (CLI) | payer OTHER, SELFPAY ==
[2022-10-08 08:20] LABS: Lithium 0.8 mmol/L (0.6-1.2)
== END ==
PROVIDERS: PCP Family Medicine; Referring Provider Psychiatry & Neurology Psychiatry; Visit Provider Psychiatry & Neurology Psychiatry
DX: F33.9 Major depressive disorder, recurrent, unspecified (principal); G47.00 Insomnia, unspecified; F43.10 Post-traumatic stress disorder, unspecified
CPT/HCPCS: 36415; 80178

== ENCOUNTER → 2022-10-23 17:09 | Outpatient (CLI) | payer OTHER, SELFPAY ==
--- NOTE | 2022-10-23 17:11 | DI.RAD.S_ITS ---
PROCEDURE: XR FOOT LT MIN 3V INDICATIONS: Left foot pain-1st MTP TECHNIQUE: 3 views of the foot were acquired. COMPARISON: None. FINDINGS: Bones: No acute fractures or dislocations. No suspicious bony lesions. Soft tissues: No suspicious soft tissue calcification. IMPRESSION: No acute osseous abnormality. If clinical suspicion and/or symptoms persist, additional imaging with repeat plain films, or advanced imaging (e.g. CT, MRI) may be helpful for further assessment. Approved by: Pipo Peña M.D. on 10/23/2022 at 17:25
== END ==
PROVIDERS: PCP Family Medicine; Referring Provider Registered Nurse; Visit Provider Registered Nurse
DX: M79.672 Pain in left foot (principal)
CPT/HCPCS: 73630

== ENCOUNTER 2023-01-21 13:29 | Emergency (ER) | payer OTHER, SELFPAY ==
[2023-01-21 13:36] VITALS: BP 175/94; PULSE 110; RESP 16; TEMP 37.2; O2SAT 97; BMI 27.1
--- NOTE | 2023-01-21 14:18 | ED_ITS ---
HPI - Wound/Laceration <Wai Dash PA-C - Last Filed: 01/21/23 18:11> General Chief Complaint: Wound/Laceration Stated Complaint: head laceration Time Seen by Provider: 01/21/23 13:47 Source: patient Mode of arrival: Ambulatory History of Present Illness HPI narrative: This is a 42-year-old male presents emergency department due to a head injury after standing up and hitting his head on a piece of his bow. Denies any losses of consciousness, nausea, vomiting, slurred speech, dizziness, or any other concerning signs or symptoms. States that the wound was initially bleeding but it stopped. No other injuries. Denies any neck pain. Related Data Home Medications Medication Instructions Recorded Confirmed bupropion HCl 300 mg 24 hr tablet, 300 mg PO QAM 11/08/20 10/23/22 extended release lithium carbonate 300 mg capsule 300 mg PO TID 11/08/20 10/23/22 sertraline 50 mg tablet 50 mg PO DAILY 04/03/22 10/23/22 guanfacine 2 mg tablet 1 mg PO BID 08/24/22 10/23/22 Previous Rx's Medication Instructions Recorded triamcinolone acetonide 0.1 % 1 applic topical BID rash/itching 05/29/22 topical ointment #15 grams acetaminophen 325 mg capsule 650 mg PO QID PRN pain #60 caps 08/24/22 (Tylenol) docusate sodium 100 mg capsule 100 mg PO BID #30 caps 08/24/22 (Colace) ibuprofen 200 mg tablet 400 mg PO Q6H #60 tabs 08/24/22 Allergies Allergy/AdvReac Type Severity Reaction Status Date / Time Penicillins [PENICILLINS] Allergy Severe Rash Verified 01/21/23 13:36 Review of Systems <Wai Dash PA-C - Last Filed: 01/21/23 18:11> Review of Systems Narrative: GENERAL: Denies chills, fatigue, malaise, fever, sweats. HEENT: Reports head pain. Denies sinus pain, ear pain, sore throat, difficulty swallowing, dizziness. RESPIRATORY: Denies dyspnea, cough, wheezing, hemoptysis, sputum. CARDIOVASCULAR: Denies chest pain, palpitations, orthopnea, edema, GASTROINTESTINAL: Denies nausea, vomiting, abdominal pain, diarrhea, constipat ion, melena. : Denies dysuria, frequency, incontinence, hematuria, urinary retention. MUSCULOSKELETAL: denies weakness, joint pain, or bony pain SKIN: Reports laceration NEUROLOGIC: Denies weakness, headache, numbness, change in speech, confusion, seizures, incoordination. PSYCHIATRIC: No concerning psychosocial issues. 12 point review of systems is negative except for those stated above Patient History <Wai Dash PA-C - Last Filed: 01/21/23 18:11> Medical History Chicken pox Depression Eczema (~1981) Knee pain, left Sciatica Vision disorder Surgical History H/O hand surgery (07/2017) Family History Grandfather Age: 85 Depression Mother Age: 68 High cholesterol Grandmother Cancer Heart disease Grandfather No problems noted. Social History marital status: household members: spouse and children occupational status: employed Smoking Status: Former smoker alcohol intake: current substance use type: does not use Smoking Status: Former smoker Substance Use Type: does not use Exam <Wai Dash PA-C - Last Filed: 01/21/23 18:11> Narrative Exam Narrative: GENERAL: Well-developed patient, in mild distress. HEAD: Atraumatic. Normocephalic. EYES: Pupils equal round and reactive. Extraocular motions intact. No scleral icterus. No injection or drainage. ENT: Nose without bleeding, purulent drainage. Throat without erythema, tonsillar hypertrophy or exudate. Airway patent. NECK: Trachea midline. Non tender EXTREMITIES: No edema or joint tenderness. BACK: Nontender without deformity or crepitance. No flank tenderness. NEURO: AOx3. Cranial nerves 2-12 intact SKIN: 1 cm very superficial laceration to the scalp. No active bleeding. No surrounding crepitus. Initial Vital Signs Initial Vital Signs: Vital Signs Temperature 99.0 F 01/21/23 13:36 Pulse Rate 110 H 01/21/23 13:36 Respiratory Rate 16 01/21/23 13:36 Blood Pressure 175/94 H 01/21/23 13:36 Pulse Oximetry 97 01/21/23 13:36 Oxygen Delivery Method Room Air 01/21/23 13:36 <Sherrie Rhodes DO - Last Filed: 01/21/23 19:03> Initial Vital Signs Initial Vital Signs: Vital Signs Temperature 99.0 F 01/21/23 13:36 Pulse Rate 110 H 01/21/23 13:36 Respiratory Rate 16 01/21/23 13:36 Blood Pressure 175/94 H 01/21/23 13:36 Pulse Oximetry 97 01/21/23 13:36 Oxygen Delivery Method Room Air 01/21/23 13:36 Course <Wai Dash PA-C - Last Filed: 01/21/23 18:11> Vital Signs Vital signs: Vital Signs - 8 hr 01/21/23 13:36 Temperature 99.0 F Pulse Rate 110 H Respiratory Rate 16 Blood Pressure 175/94 H Pulse Oximetry 97 Oxygen Delivery Method Room Air <Sherrie Rhodes DO - Last Filed: 01/21/23 19:03> Vital Signs Vital signs: Vital Signs - 8 hr 01/21/23 13:36 Temperature 99.0 F Pulse Rate 110 H Respiratory Rate 16 Blood Pressure 175/94 H Pulse Oximetry 97 Oxygen Delivery Method Room Air MDM - Wound/Laceration <Wai Dash PA-C - Last Filed: 01/21/23 18:11> MDM Narrative Medical decision making narrative: MDM * differential diagnosis includes but not limited to laceration, skull fracture, concussion, intracranial bleed * Prior records reviewed: Patient has not been here for similar complaints in the past * My lab interpretation: None obtained * My imgaing interpretation: None obtained * Clinical Decision Rules/Scores evaluated: None * Independent discussions with: None ED Course: This is a 42-year-old male presenting to the emergency department due to a very superficial minor laceration to the scalp. On examination there was no evidence of any kind of bleeding and wound was so superficial did not think that placing mia would be necessary. Tetanus up-to-date. Patient complained normal neuro exam and no signs or symptoms of any kind concussion. Shared Decision Making: Discussed plan with patient was comfortable with the plan Social Considerations: None Disposition: Discharged to home Discharge Plan Departure Patient Disposition: Home Clinical Impression: Head injury Activity Restrictions/Additional Instructions: Thank you for coming to the [facility] Emergency Department today. As we discussed your wound is very superficial and not think that we need to place any kind of mia or sutures were skin glue. Please be careful while washing her hair taking showers as you do not aggravate the wound and cause bleeding. I am glad that your tetanus is up-to-date. I hope you feel better soon. Prescriptions: No Action lithium carbonate 300 mg capsule 300 mg PO TID triamcinolone acetonide 0.1 % ointment 1 applic topical BID Qty: 15 1RF sertraline 50 mg tablet 50 mg PO DAILY bupropion HCl 300 mg tablet extended release 24 hr 300 mg PO QAM guanfacine 2 mg tablet 1 mg PO BID docusate sodium [Colace] 100 mg capsule 100 mg PO BID Qty: 30 0RF ibuprofen 200 mg tablet 400 mg PO Q6H Qty: 60 0RF acetaminophen [Tylenol] 325 mg capsule 650 mg PO QID PRN (Reason: pain) Qty: 60 0RF Referrals: Katarina Bobo MD [Primary Care Provider] - Stand Alone Forms: Patient Portal/API <Sherrie Rhodes DO - Last Filed: 01/21/23 19:03> Cosign ED Attending Cosflowerature Attestation: I was immediately available in the department for consultation.
== END 2023-01-21 14:32 | disposition home or self-care (01) ==
PROVIDERS: Emergency Provider Physician Assistant Medical; PCP Family Medicine
DX: S01.01XA Laceration without foreign body of scalp, initial encounter (principal); W22.8XXA Striking against or struck by other objects, initial encounter; Y99.0 Civilian activity done for income or pay
CPT/HCPCS: 99281

== ENCOUNTER → 2023-02-11 07:31 | Outpatient (CLI) | payer OTHER, SELFPAY ==
[2023-02-11 08:41] LABS: Hematocrit 33.5 % (41-53); Mean Corpuscular Volume 85.1 fL (80-100); Red Blood Cell Count 3.93 X10^6/uL (4.5-5.9); Red Cell Distribution Width 16.3 % (11.6-14.8)
[2023-02-11 09:03] LABS: Lithium 0.4 mmol/L (0.6-1.2)
[2023-02-11 09:05] LABS: Alanine Aminotransferase 23 IU/L (<50); Albumin 4.2 g/dL (3.5-5.0); Albumin Globulin Ratio 1.3 (1.0-2.8); Alkaline Phosphatase 81 U/L (38-126); Aspartate Aminotransferase 37 IU/L (17-59); BUN Creatinine Ratio 6.4 (6-22); Bilirubin Total 0.5 mg/dL (0.2-1.3); Blood Urea Nitrogen 7 mg/dL (9-20); Calcium 9.5 mg/dL (8.4-10.2); Carbon Dioxide 29 mmol/L (22-32); Chloride 102 mmol/L (98-107); Cholesterol 153 mg/dL (140-199); Estimated Glomerular Filt Rate > 60 mL/min (>60); Globulin 3.2 g/dL (1.7-4.1); Glucose 123 mg/dL (70-100); HDL Cholesterol 33 mg/dL (40-60); HEMOLYSIS < 15 (0-50); LDL Cholesterol Calculated 78 mg/dL (<100); Potassium 4.3 mmol/L (3.4-5.1); Sodium 136 mmol/L (137-145); Total Protein 7.4 g/dL (6.3-8.2); Triglycerides 212 mg/dL (35-150)
[2023-02-11 09:38] LABS: Thyroid Stimulating Hormone 2.06 uIU/mL (0.47-4.68)
[2023-02-11 10:03] LABS: Platelet Count 26 X10^3/uL (150-400); White Blood Cell Count 84.8 X10^3/uL (4.5-11.0)
== END ==
PROVIDERS: PCP Family Medicine; Referring Provider Psychiatry & Neurology Psychiatry; Visit Provider Psychiatry & Neurology Psychiatry
DX: F33.9 Major depressive disorder, recurrent, unspecified (principal); F43.10 Post-traumatic stress disorder, unspecified; F42.9 Obsessive-compulsive disorder, unspecified; G47.00 Insomnia, unspecified
CPT/HCPCS: 36415; 80053; 80061; 80178; 84443; 85027

== ENCOUNTER 2023-02-11 10:46 | Emergency (ER) | payer OTHER, SELFPAY ==
[2023-02-11] VITALS (16 sets, daily range): BP systolic 125–173; BP diastolic 64–90; PULSE 64–88; RESP 16–20; TEMP 36.7–36.9; O2SAT 95–99; BMI 26.0
--- NOTE | 2023-02-11 11:18 | PC.NURSE ---
Patient comes in with multiple bruises accross abdomen and chest that are green/yellow in appearance that the patient is unaware of how he received them. Patient also has a large bruise to his right bicep from running into something at work per his report. Patient also has a burn the side of a nickel on the back of his left hand that he states occurred at work. The burn wound is closed with no apparent drainage.
--- NOTE | 2023-02-11 12:20 | ED.GENADULT ---
HPI - General Adult General Chief complaint: Weakness Stated complaint: Abnormal Lab results, told to be seen Time Seen by Provider: 02/11/23 11:21 Source: patient Mode of arrival: Ambulatory History of Present Illness HPI narrative: Patient is a 43-year-old male. Does have some mental health issues and does see a psychiatrist. Is on lithium and other mental health medications. Had labs drawn this morning that were ordered by his mental health provider. He states these were his monthly labs to check his lithium level and other electrolytes. He was told to come to the emergency department because of the abnormalities. Patient states that for the past week or so he has had some fatigue and shortness of breath on exertion. Denies headaches. Denies chest pain. He has been having some bruising on his skin that he initially thought were ?spider bites? that he was seen for with the walk-in clinic. He denies any specific trauma. No blood in his stool. No dark-colored stool. No vomiting. No abdominal pain. No blood in his urine. 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 He denied any other drugs to include marijuana. Related Data Home Medications Medication Instructions Recorded Confirmed bupropion HCl 300 mg 24 hr tablet, 300 mg PO QAM 11/08/20 02/11/23 extended release lithium carbonate 300 mg capsule 300 mg PO TID 11/08/20 02/11/23 sertraline 50 mg tablet 50 mg PO DAILY 04/03/22 02/11/23 guanfacine 2 mg tablet 1 mg PO BID 08/24/22 02/11/23 Allergies Allergy/AdvReac Type Severity Reaction Status Date / Time Penicillins [PENICILLINS] Allergy Severe Rash Verified 02/09/23 15:34 Review of Systems Review of Systems ROS Unobtainable: All systems reviewed & are unremarkable except as noted in HPI and below Patient History Medical History Chicken pox Depression Eczema (~1981) Knee pain, left Sciatica Vision disorder Surgical History H/O hand surgery (07/2017) Family History Grandfather Age: 85 Depression Mother Age: 68 High cholesterol Grandmother Cancer Heart disease Grandfather No problems noted. Social History marital status: household members: spouse and children occupational status: employed Smoking Status: Former smoker alcohol intake: current substance use type: does not use Smoking Status: Former smoker alcohol intake frequency: other Substance Use Type: does not use Exam Initial Vital Signs Initial Vital Signs: Vital Signs Temperature 98.1 F 02/11/23 10:57 Pulse Rate 87 02/11/23 10:57 Respiratory Rate 18 02/11/23 10:57 Blood Pressure 156/67 H 02/11/23 10:57 Pulse Oximetry 99 02/11/23 10:57 Oxygen Delivery Method Room Air 02/11/23 10:57 Const General: cooperative, comfortable and No ill appearing HENMT Head: normal to inspection Resp Effort & Inspection: normal respiratory effort Auscultation: clear to auscultation bilaterally Cardio Rate: regular rate Rhythm: regular rhythm GI Inspection: normal to inspection and non-distended Palpation: soft and No tender Skin General: no rashes or lesions noted Neuro General: patient alert, patient awake, patient oriented x3 and moves all extremities Speech: speech normal Gait: normal gait Extrem General: capillary refill normal Course Orders Ordered: ED Orders 02/11/23 12:30 XR chest 1V Stat 02/11/23 12:35 CBC with manual diff [Complete Blood Count MAN DIFF] Stat Comprehensive Metabolic Panel Stat D Dimer Stat Ethanol (ETOH) Stat Fibrinogen Stat LDH [Lactate Dehydrogenase] Stat Lipase Stat PTT Partial Thromboplastin Isai Stat Pathologist Review (for CBC) Stat Prothrombin Time INR Stat Type and Screen Stat Uric Acid Stat 02/11/23 15:44 Urinalysis and Microscopic Stat 02/11/23 17:40 COVID19 -Nasal RAPID Stat Bupropion HCl (Bupropion Xl 150 Mg Tab) 300 mg PO DAILY KETAN Rodanthe Carbonate (Rodanthe 150 Mg Ir Capsule) 300 mg PO TID KETAN Sertraline HCl (Sertraline 50 Mg Tablet) 50 mg PO DAILY KETAN Discontinued Medications Allopurinol (Allopurinol 100 Mg Tablet) 300 mg PO NOW ONE Stop: 02/11/23 17:10 Last Admin: 02/11/23 17:35 Dose: 300 mg Documented By: RB Hydroxyurea (Hydroxyurea 500 Mg Capsule) 3,000 mg PO NOW ONE Stop: 02/11/23 17:10 Last Admin: 02/11/23 17:35 Dose: 3,000 mg Documented By: RB Vital Signs Vital signs: Vital Signs - 8 hr 02/11/23 10:57 02/11/23 11:13 02/11/23 11:13 Temperature 98.1 F Pulse Rate 87 68 Respiratory Rate 18 Blood Pressure 156/67 H 149/83 H Pulse Oximetry 99 98 Oxygen Delivery Method Room Air 02/11/23 11:30 02/11/23 11:30 02/11/23 11:38 Temperature Pulse Rate 75 88 Respiratory Rate Blood Pressure 139/78 Pulse Oximetry 96 99 Oxygen Delivery Method 02/11/23 11:38 02/11/23 12:00 02/11/23 12:00 Temperature Pulse Rate 65 Respiratory Rate Blood Pressure 173/72 H 134/73 Pulse Oximetry 95 Oxygen Delivery Method 02/11/23 12:30 02/11/23 12:30 02/11/23 17:12 Temperature Pulse Rate 64 73 Respiratory Rate 20 Blood Pressure 152/90 H 154/77 H Pulse Oximetry 97 96 Oxygen Delivery Method Room Air Medical Decision Making Medical Records Medical records reviewed: Yes I reviewed the patient's medical records. Lab Data Lab results reviewed: Yes I reviewed the patient's lab results. 02/11/23 12:35 02/11/23 12:35 Labs: Lab Results 02/11/23 02/11/23 02/11/23 Range/Units 12:35 12:35 12:35 WBC 88.5 H* (4.5-11.0) X10^3/uL RBC 3.78 L (4.5-5.9) X10^6/uL Hgb 10.7 L (13.5-17.5) g/dL Hct 32.2 L (41-53) % MCV 85.3 (80-100) fL MCH 28.2 (26-34) PG MCHC 33.0 (30-36) % RDW 16.3 H (11.6-14.8) % Plt Count 25 L* (150-400) X10^3/uL Total Counted 100 Lymphocytes % (Manual) 8.0 L (25-45) % Monocytes % (Manual) 14.0 H (2-11) % Blast Cells % 78.0 H (-0) % Neutrophils # (Manual) 0 L (4264-2130) /uL Platelet Estimate Decreased on smear RBC Morphology See below Anisocytosis 1+ H PT 13.5 H (10.1-12.7) SECONDS INR 1.2 (0.9-1.3) APTT 30 (26-36) SECONDS Fibrinogen (211-428) mg/dL D-Dimer (<500) ng/ml Sodium 138 (137-145) mmol/L Potassium 4.2 (3.4-5.1) mmol/L Chloride 103 (98-107) mmol/L Carbon Dioxide 28 (22-32) mmol/L BUN 7 L (9-20) mg/dL Creatinine 0.99 (0.66-1.25) mg/dL Estimated GFR > 60 (>60) mL/min BUN/Creatinine Ratio 7.1 (6-22) Glucose 112 H (70-100) mg/dL Uric Acid (3.5-8.5) mg/dL Calcium 9.5 (8.4-10.2) mg/dL Total Bilirubin 0.4 (0.2-1.3) mg/dL AST 37 (17-59) IU/L ALT 21 (<50) IU/L Alkaline Phosphatase 81 (38-126) U/L Lactate Dehydrogenase (120-246) U/L Total Protein 7.5 (6.3-8.2) g/dL Albumin 4.3 (3.5-5.0) g/dL Globulin 3.2 (1.7-4.1) g/dL Albumin/Globulin Ratio 1.3 (1.0-2.8) Lipase (23-300) U/L Urine Color Urine Appearance Urine pH (4.5-8.0) Ur Specific Sebastian (1.000-1.035) Urine Protein (Negative) Urine Glucose (UA) (Negative) g/dL Urine Ketones (NEGATIVE) Urine Occult Blood (Negative) Urine Nitrate (Negative) Urine Bilirubin (NEGATIVE) Urine Urobilinogen (0.2) E.U./dL Ur Leukocyte Esterase (NEGATIVE) Urine RBC (0-5/HPF) Urine WBC (0-5/HPF) Ur Squamous Epith Cells (0-5/HPF) Urine Bacteria (None) Ur Culture Indicated? Ethyl Alcohol < 10 ( - 10) mg/dL SARS-CoV-2 (PCR) (Negative) Blood Type Antibody Screen 02/11/23 02/11/2323 Range/Units 12:35 12:35 12:35 WBC (4.5-11.0) X10^3/uL RBC (4.5-5.9) X10^6/uL Hgb (13.5-17.5) g/dL Hct (41-53) % MCV (80-100) fL MCH (26-34) PG MCHC (30-36) % RDW (11.6-14.8) % Plt Count (150-400) X10^3/uL Total Counted Lymphocytes % (Manual) (25-45) % Monocytes % (Manual) (2-11) % Blast Cells % (-0) % Neutrophils # (Manual) (8711-8116) /uL Platelet Estimate RBC Morphology Anisocytosis PT (10.1-12.7) SECONDS INR (0.9-1.3) APTT (26-36) SECONDS Fibrinogen 480 H (211-428) mg/dL D-Dimer 3688 H (<500) ng/ml Sodium (137-145) mmol/L Potassium (3.4-5.1) mmol/L Chloride (98-107) mmol/L Carbon Dioxide (22-32) mmol/L BUN (9-20) mg/dL Creatinine (0.66-1.25) mg/dL Estimated GFR (>60) mL/min BUN/Creatinine Ratio (6-22) Glucose (70-100) mg/dL Uric Acid (3.5-8.5) mg/dL Calcium (8.4-10.2) mg/dL Total Bilirubin (0.2-1.3) mg/dL AST (17-59) IU/L ALT (<50) IU/L Alkaline Phosphatase (38-126) U/L Lactate Dehydrogenase 2328 H (120-246) U/L Total Protein (6.3-8.2) g/dL Albumin (3.5-5.0) g/dL Globulin (1.7-4.1) g/dL Albumin/Globulin Ratio (1.0-2.8) Lipase 93 (23-300) U/L Urine Color Urine Appearance Urine pH (4.5-8.0) Ur Specific Sebastian (1.000-1.035) Urine Protein (Negative) Urine Glucose (UA) (Negative) g/dL Urine Ketones (NEGATIVE) Urine Occult Blood (Negative) Urine Nitrate (Negative) Urine Bilirubin (NEGATIVE) Urine Urobilinogen (0.2) E.U./dL Ur Leukocyte Esterase (NEGATIVE) Urine RBC (0-5/HPF) Urine WBC (0-5/HPF) Ur Squamous Epith Cells (0-5/HPF) Urine Bacteria (None) Ur Culture Indicated? Ethyl Alcohol ( - 10) mg/dL SARS-CoV-2 (PCR) (Negative) Blood Type Antibody Screen 02/11/23 02/11/23 02/11/23 Range/Units 12:35 12:35 15:44 WBC (4.5-11.0) X10^3/uL RBC (4.5-5.9) X10^6/uL Hgb (13.5-17.5) g/dL Hct (41-53) % MCV (80-100) fL MCH (26-34) PG MCHC (30-36) % RDW (11.6-14.8) % Plt Count (150-400) X10^3/uL Total Counted Lymphocytes % (Manual) (25-45) % Monocytes % (Manual) (2-11) % Blast Cells % (-0) % Neutrophils # (Manual) (0472-9415) /uL Platelet Estimate RBC Morphology Anisocytosis PT (10.1-12.7) SECONDS INR (0.9-1.3) APTT (26-36) SECONDS Fibrinogen (211-428) mg/dL D-Dimer (<500) ng/ml Sodium (137-145) mmol/L Potassium (3.4-5.1) mmol/L Chloride (98-107) mmol/L Carbon Dioxide (22-32) mmol/L BUN (9-20) mg/dL Creatinine (0.66-1.25) mg/dL Estimated GFR (>60) mL/min BUN/Creatinine Ratio (6-22) Glucose (70-100) mg/dL Uric Acid 10.6 H (3.5-8.5) mg/dL Calcium (8.4-10.2) mg/dL Total Bilirubin (0.2-1.3) mg/dL AST (17-59) IU/L ALT (<50) IU/L Alkaline Phosphatase (38-126) U/L Lactate Dehydrogenase (120-246) U/L Total Protein (6.3-8.2) g/dL Albumin (3.5-5.0) g/dL Globulin (1.7-4.1) g/dL Albumin/Globulin Ratio (1.0-2.8) Lipase (23-300) U/L Urine Color Yellow Urine Appearance Clear Urine pH 6.5 (4.5-8.0) Ur Specific Sebastian <=1.005 (1.000-1.035) Urine Protein Negative (Negative) Urine Glucose (UA) Negative (Negative) g/dL Urine Ketones Negative (NEGATIVE) Urine Occult Blood Trace-intact (Negative) Urine Nitrate Negative (Negative) Urine Bilirubin Negative (NEGATIVE) Urine Urobilinogen 0.2 (0.2) E.U./dL Ur Leukocyte Esterase Negative (NEGATIVE) Urine RBC 0-1/hpf (0-5/HPF) Urine WBC None seen (0-5/HPF) Ur Squamous Epith Cells None seen (0-5/HPF) Urine Bacteria None seen (None) Ur Culture Indicated? Cult not indicated Ethyl Alcohol ( - 10) mg/dL SARS-CoV-2 (PCR) (Negative) Blood Type A Negative Antibody Screen Negative 02/11/23 Range/Units 17:40 WBC (4.5-11.0) X10^3/uL RBC (4.5-5.9) X10^6/uL Hgb (13.5-17.5) g/dL Hct (41-53) % MCV (80-100) fL MCH (26-34) PG MCHC (30-36) % RDW (11.6-14.8) % Plt Count (150-400) X10^3/uL Total Counted Lymphocytes % (Manual) (25-45) % Monocytes % (Manual) (2-11) % Blast Cells % (-0) % Neutrophils # (Manual) ([id number]) /uL Platelet Estimate RBC Morphology Anisocytosis PT (10.1-12.7) SECONDS INR (0.9-1.3) APTT (26-36) SECONDS Fibrinogen (211-428) mg/dL D-Dimer (<500) ng/ml Sodium (137-145) mmol/L Potassium (3.4-5.1) mmol/L Chloride (98-107) mmol/L Carbon Dioxide (22-32) mmol/L BUN (9-20) mg/dL Creatinine (0.66-1.25) mg/dL Estimated GFR (>60) mL/min BUN/Creatinine Ratio (6-22) Glucose (70-100) mg/dL Uric Acid (3.5-8.5) mg/dL Calcium (8.4-10.2) mg/dL Total Bilirubin (0.2-1.3) mg/dL AST (17-59) IU/L ALT (<50) IU/L Alkaline Phosphatase (38-126) U/L Lactate Dehydrogenase (120-246) U/L Total Protein (6.3-8.2) g/dL Albumin (3.5-5.0) g/dL Globulin (1.7-4.1) g/dL Albumin/Globulin Ratio (1.0-2.8) Lipase (23-300) U/L Urine Color Urine Appearance Urine pH (4.5-8.0) Ur Specific Sebastian (1.000-1.035) Urine Protein (Negative) Urine Glucose (UA) (Negative) g/dL Urine Ketones (NEGATIVE) Urine Occult Blood (Negative) Urine Nitrate (Negative) Urine Bilirubin (NEGATIVE) Urine Urobilinogen (0.2) E.U./dL Ur Leukocyte Esterase (NEGATIVE) Urine RBC (0-5/HPF) Urine WBC (0-5/HPF) Ur Squamous Epith Cells (0-5/HPF) Urine Bacteria (None) Ur Culture Indicated? Ethyl Alcohol ( - 10) mg/dL SARS-CoV-2 (PCR) Negative (Negative) Blood Type Antibody Screen Imaging Data Chest x-ray: Radiologist's Impression: PROCEDURE:? XR CHEST 1V ? INDICATIONS:? Shortness of breath ? TECHNIQUE:? One view of the chest was acquired.? ? COMPARISON:? [facility], CHEST 1 VIEW, 07/26/2009, 22:21. ? FINDINGS:? ? Surgical changes and devices:? None.? ? Lungs and pleura:? Lungs are clear.? No pleural effusions or pneumothorax.? ? Mediastinum:? Mediastinal contours appear normal.? Heart size is normal.? ? Bones and chest wall:? No suspicious bony lesions.? Overlying soft tissues appear unremarkable.? ? IMPRESSION:? No acute cardiopulmonary process. MDM Narrative Medical decision making narrative: Patient without neurologic symptoms. No chest pain or shortness of breath. He does have some petechiae and bruising specifically on his extremities. No fevers. CBC today significantly abnormal with a leukocytosis and a slight anemia and also thrombocytopenia. He is no signs of acute bleeding. Will hold on any transfusions for now. I did discuss the case with Dr. Romano with oncology who was concern about an acute leukemia specifically given his blasts. He recommended further lab work which was ordered. He also recommended the patient either be transferred or admitted to the hospital. I feel that this patient would be better off at a facility that had inpatient Oncology. I then discussed the case with Dr. Nuñez with the leukemia service at [facility] who recommended giving the allopurinol and then the hydroxyurea. She accepts the patient for transfer. I informed the patient of the concern with the labs. We did discuss the concern for an acute leukemia. We discussed the need for transfer. Patient expressed understanding. Patient is stable for transport. Discharge Plan Departure Patient Disposition: [facility] Clinical Impression: Acute leukemia Prescriptions: No Action lithium carbonate 300 mg capsule 300 mg PO TID sertraline 50 mg tablet 50 mg PO DAILY bupropion HCl 300 mg tablet extended release 24 hr 300 mg PO QAM guanfacine 2 mg tablet 1 mg PO BID Referrals: Katarina Bobo MD [Primary Care Provider] -
--- NOTE | 2023-02-11 12:30 | DI.RAD.S_ITS ---
PROCEDURE: XR CHEST 1V INDICATIONS: Shortness of breath TECHNIQUE: One view of the chest was acquired. COMPARISON: [facility], , CHEST 1 VIEW, 07/26/2009, 22:21. FINDINGS: Surgical changes and devices: None. Lungs and pleura: Lungs are clear. No pleural effusions or pneumothorax. Mediastinum: Mediastinal contours appear normal. Heart size is normal. Bones and chest wall: No suspicious bony lesions. Overlying soft tissues appear unremarkable. IMPRESSION: No acute cardiopulmonary process. Dictated by: Rivas Dawn M.D. on 02/11/2023 at 12:56 Approved by: Rivas Dawn M.D. on 02/11/2023 at 12:56
[2023-02-11 12:48] LABS: INR 1.2 (0.9-1.3); Prothrombin Time 13.5 SECONDS (10.1-12.7)
[2023-02-11 12:49] LABS: Hematocrit 32.2 % (41-53); Hemoglobin 10.7 g/dL (13.5-17.5); Mean Corpuscular Hemoglobin 28.2 PG (26-34); Mean Corpuscular Volume 85.3 fL (80-100); Red Blood Cell Count 3.78 X10^6/uL (4.5-5.9); Red Cell Distribution Width 16.3 % (11.6-14.8)
[2023-02-11 12:51] LABS: PTT Partial Thromboplastin Tim 30 SECONDS (26-36)
[2023-02-11 12:55] LABS: Platelet Count 25 X10^3/uL (150-400); White Blood Cell Count 88.5 X10^3/uL (4.5-11.0)
[2023-02-11 13:00] LABS: Lipase 93 U/L (23-300)
[2023-02-11 13:01] LABS: Alanine Aminotransferase 21 IU/L (<50); Albumin 4.3 g/dL (3.5-5.0); Albumin Globulin Ratio 1.3 (1.0-2.8); Alkaline Phosphatase 81 U/L (38-126); Aspartate Aminotransferase 37 IU/L (17-59); BUN Creatinine Ratio 7.1 (6-22); Bilirubin Total 0.4 mg/dL (0.2-1.3); Blood Urea Nitrogen 7 mg/dL (9-20); Calcium 9.5 mg/dL (8.4-10.2); Carbon Dioxide 28 mmol/L (22-32); Chloride 103 mmol/L (98-107); Estimated Glomerular Filt Rate > 60 mL/min (>60); Ethanol (ETOH) < 10 mg/dL; Globulin 3.2 g/dL (1.7-4.1); Glucose 112 mg/dL (70-100); HEMOLYSIS < 15 (0-50); Potassium 4.2 mmol/L (3.4-5.1); Sodium 138 mmol/L (137-145); Total Protein 7.5 g/dL (6.3-8.2)
[2023-02-11 13:45] LABS: Anisocytosis 1+
[2023-02-11 13:46] LABS: Platelet Estimate Decreased on smear
[2023-02-11 13:51] LABS: Neutrophils Absolute Manual 0 /uL (3000-5900); Total Cells Counted 100
[2023-02-11 15:21] LABS: D Dimer 3688 ng/ml (<500)
[2023-02-11 15:49] LABS: Fibrinogen 480 mg/dL (211-428)
[2023-02-11 16:02] LABS: Lactate Dehydrogenase 2328 U/L (120-246)
[2023-02-11 16:17] LABS: Appearance Urine UA CLEAR; Bilirubin Urine UA NEGATIVE (NEGATIVE); Color Urine UA YELLOW; Glucose Urine UA NEGATIVE (Negative); Ketones Urine UA NEGATIVE (NEGATIVE); Leukocyte Esterase Urine UA NEGATIVE (NEGATIVE); Nitrite Urine UA NEGATIVE (Negative); Occult Blood Urine UA TRACE-INTACT (Negative); Protein Urine UA NEGATIVE (Negative); Specific Gravity Urine UA <=1.005 (1.000-1.035); Urobilinogen Urine UA 0.2 E.U./dL (0.2); pH Urine UA 6.5 (4.5-8.0)
[2023-02-11 16:28] LABS: Bacteria Urine None Seen; Culture Indicated Urine Cult Not Indicated; RBC Urine 0-1/HPF (0-5/HPF); Squamous Epithelial Cell Urine None Seen (0-5/HPF); WBC Urine None Seen (0-5/HPF)
--- NOTE | 2023-02-11 17:30 | PC.NURSE ---
BECCA note [id number] Tawanna at [facility] called pt. was accepted @[facility] by Dr. Tiffany Nuñez, [facility]. will call back with bed update.
[2023-02-11] MEDS: HYDROXYUREA 500 MG CAPSULE 3000 MG PO (17:35)
[2023-02-11] MEDS: allopurinoL 100 MG TABLET 300 MG PO (17:35)
[2023-02-11 17:40] LABS: Uric Acid 10.6 mg/dL (3.5-8.5)
[2023-02-11 18:03] LABS: COVID19 -Nasal RAPID Negative (Negative)
--- NOTE | 2023-02-11 18:29 | PC.NURSE ---
spoke w/February at [facility]. pt. is accepted at by dr. mikel smart at [facility] rm # [id number] , February advised bed will be ready at 2100. Arranged transport with [facility]. ETA at this time is 2130.
== END 2023-02-11 22:07 | disposition short-term general hospital (02) ==
PROVIDERS: Emergency Provider Emergency Medicine; PCP Family Medicine
DX: C95.00 Acute leukemia of unspecified cell type not having achieved remission (principal); R06.02 Shortness of breath; Z20.822 Contact with and (suspected) exposure to COVID-19; F33.9 Major depressive disorder, recurrent, unspecified; F42.9 Obsessive-compulsive disorder, unspecified; F43.10 Post-traumatic stress disorder, unspecified; G47.00 Insomnia, unspecified
CPT/HCPCS: 36415; 71045; 80053; 80061; 80178; 80320; 81001; 83615; 83690; 84443; 84550; 85025; 85027; 85379; 85384; 85610; 85730; 86850; 86900; 86901; 87635; 99284; C9803

== ENCOUNTER 2023-08-24 04:37 | Emergency (ER) | payer OTHER, SELFPAY ==
[2023-08-24 04:42] VITALS: BP 161/81; PULSE 92; RESP 16; TEMP 36.8; O2SAT 98; BMI 25.3
--- NOTE | 2023-08-24 04:59 | ED.EXTPRO ---
HPI - Extremity Problem General Chief complaint: Extremity Problem,Nontraumatic Stated complaint: picc line is bleeding Time Seen by Provider: 08/24/23 04:41 Source: patient Mode of arrival: Ambulatory History of Present Illness HPI Narrative: 43-year-old male. Has a left upper extremity PICC line that was placed for chemotherapy. He states that he is neutropenic and thrombocytopenic. His current PICC line was placed several weeks ago. He woke up this morning with bleeding around the PICC line bandage. No other bleeding noted. Related Data Home Medications Medication Instructions Recorded Confirmed bupropion HCl 300 mg 24 hr tablet, 300 mg PO QAM 11/08/20 07/09/23 extended release sertraline 50 mg tablet 50 mg PO DAILY 04/03/22 07/09/23 acyclovir 800 mg tablet 800 mg PO BID 04/17/23 07/09/23 levofloxacin 500 mg tablet 500 mg PO DAILY 04/17/23 07/09/23 midostaurin 25 mg capsule 50 mg PO Q12H 04/17/23 07/09/23 voriconazole 200 mg tablet 200 mg PO Q12H 04/17/23 07/09/23 Previous Rx's Medication Instructions Recorded lisinopril 10 mg tablet 10 mg PO DAILY #90 tabs 06/20/23 Allergies Allergy/AdvReac Type Severity Reaction Status Date / Time Penicillins [PENICILLINS] Allergy Severe Rash Verified 07/09/23 11:02 Review of Systems Integumentary/Breasts Comments: Bleeding from PICC line and left arm Hematologic/Lymphatic On Anticoagulants: No Patient History Medical History Depression Sciatica Vision disorder Knee pain, left Eczema (~1981) Chicken pox Surgical History H/O hand surgery (07/2017) Family History Grandfather Age: 86 Depression Mother Age: 69 High cholesterol Grandmother Cancer Heart disease Grandfather No problems noted. Social History marital status: household members: spouse and children occupational status: employed Smoking Status: Former smoker alcohol intake: current substance use type: does not use Smoking Status: Former smoker alcohol intake frequency: other Substance Use Type: does not use Exam Initial Vital Signs Initial Vital Signs: Vital Signs Temperature 98.3 F 08/24/23 04:42 Pulse Rate 92 H 08/24/23 04:42 Respiratory Rate 16 08/24/23 04:42 Blood Pressure 161/81 H 08/24/23 04:42 Pulse Oximetry 98 08/24/23 04:42 Oxygen Delivery Method Room Air 08/24/23 04:42 Skin Other: No signs of infection around the PICC line Extrem Other: PICC line and left upper extremity is in place. There was no active bleeding noted once the dressing was removed Course Vital Signs Vital signs: Vital Signs - 8 hr 08/24/23 04:42 Temperature 98.3 F Pulse Rate 92 H Respiratory Rate 16 Blood Pressure 161/81 H Pulse Oximetry 98 Oxygen Delivery Method Room Air MDM - Extremity (Nontraumatic) MDM Narrative Medical decision making narrative: PICC line in left upper extremity looks very well. After the dressing that was in place was removed there is no active bleeding. The skin was cleaned well. A new bandage was placed sterilely. There are no other signs of bleeding or petechiae. Will discharge patient home with instructions to keep his follow-up appointment on Saturday with his oncologist. Discharge Plan Departure Patient Disposition: Home Clinical Impression: Bleeding from PICC line Activity Restrictions/Additional Instructions: Continue to take all your medications as directed and keep all of your scheduled medical appointments. Return to the emergency department for new or worsening symptoms. Prescriptions: No Action lisinopril 10 mg tablet 10 mg PO DAILY Qty: 90 0RF sertraline 50 mg tablet 50 mg PO DAILY levofloxacin 500 mg tablet 500 mg PO DAILY acyclovir 800 mg tablet 800 mg PO BID voriconazole 200 mg tablet 200 mg PO Q12H Rx Instructions: administer on empty stomach, at least 1 hour before or after meal(s) midostaurin 25 mg capsule 50 mg PO Q12H Rx Instructions: on days 8-21 of each treatment cycle; then daily for 12 weeks bupropion HCl 300 mg tablet extended release 24 hr 300 mg PO QAM Referrals: Katarina Bobo MD [Primary Care Provider] - Stand Alone Forms: Patient Portal/API
--- NOTE | 2023-08-24 05:13 | PC.NURSE ---
Pt had bleeding under dressing at of picc line. no active bleeding noted.
[2023-08-24 05:18] VITALS: BP 129/66; PULSE 83; RESP 16; O2SAT 98
== END 2023-08-24 05:19 | disposition home or self-care (01) ==
PROVIDERS: Emergency Provider Emergency Medicine; PCP Family Medicine
DX: T82.838A Hemorrhage due to vascular prosthetic devices, implants and grafts, initial encounter (principal)
CPT/HCPCS: 99281